=== PATIENT | female | born 1975 | race African-American/Black ===

== ENCOUNTER 2017-01-10 19:55 | Inpatient (IN) | payer OTHER ==
[2017-01-10] MEDS ORDERED: DINOPROSTONE 10 MG VAGINAL SUPPOSITORY VG ONE (21:30)
[2017-01-10] MEDS: DEXTROSE 5%-LACTATED RINGERS 1,000 ML IV SCH (21:40)
[2017-01-10 21:51] LABS: BASOPHIL 0.2 % (0-2.0); EOSINOPHIL 0.4 % (0-4.5); MCHC 32.1 g/dl (32.0-36.0); MEAN CELL VOLUME 90.4 fl (80-96); MEAN PLT VOLUME 10.2 fl (7.5-11.1); NEUTROPHILS 67.3 % (42.8-82.8); PLATELET COUNT 165 K/MM3 (134-434); RDW 16.5 % (11.6-15.6); WHITE BLOOD COUNT 5.7 K/mm3 (4.0-10.0)
[2017-01-10 22:18] LABS: INR 0.96 (0.82-1.09); PROTHROMBIN TIME (PATIENT) 10.9 SEC (9.98-11.88)
[2017-01-10 22:21] LABS: ACTIVATED PTT 28.1 SECONDS (26.9-34.4)
[2017-01-10 22:22] LABS: ANION GAP 8 (8-16); CALCIUM 8.5 mg/dL (8.5-10.1); CO2 27 mmol/L (21-32); CREATININE 0.5 mg/dL (0.55-1.02); GLUCOSE,RANDOM 77 mg/dL (74-106)
[2017-01-10 22:32] VITALS: BMI 33.3
[2017-01-11] MEDS: DEXTROSE 5%-LACTATED RINGERS 1,000 ML IV SCH ×3 (00:40→18:00)
--- NOTE | 2017-01-11 07:20 | HP ---
Past Medical History - Admission History Source: Patient - Past Medical History ...: 3 ...Para: 2 ...Term: 2 ...: 0 ...Spon : 0 ...Induced : 0 ...Multiple Gestation: 0 ...LMP: 03/31/16 ... Weeks Gestation by Dates: 40.5 ...EDC by Dates: 01/05/17 ...EDC by Sono: 01/05/17 - Past Surgical History Past Surgical History: Yes: None Hx Myomectomy: No Hx Transabdominal Cerclage: No - Smoking History Smoking history: Never smoked Have you smoked in the past 12 months: No Aproximately how many cigarettes per day: 0 - Alcohol/Substance Use Hx Alcohol Use: No Home Medications - Allergies Allergies/Adverse Reactions: Allergies Allergy/AdvReac Type Severity Reaction Status Date / Time Penicillins Allergy "can't Verified 01/10/17 20:54 move" - Home Medications Home Medications: Ambulatory Orders Vitamins (Sjr) - 1 tab PO DAILY 01/10/17 Physical Exam - Maternity Vital Signs: Vital Signs Temperature 98.1 F 01/11/17 05:00 Pulse Rate 81 01/11/17 05:00 Respiratory Rate 20 01/11/17 05:00 Blood Pressure 121/76 01/11/17 05:00 O2 Sat by Pulse Oximetry (%) Constitutional: Yes: Well Nourished, No Distress Lungs: Clear to auscultation Breast(s): Yes: WNL - Abdominal Exam/OB Number of Fetuses: Single Presentation: Vertex Category: I Decelerations: None - Vaginal Exam/OB Amniotic Membrane Status: Intact Presentation: Vertex/Position - Labs Lab Results: CBC, BMP 01/10/17 21:20 01/10/17 21:20 Problem List - Problems (1) Elective induction of labor planned Code(s): DOT8348 - Assessment/Plan IUP at week Plan cervidil
[2017-01-11] MEDS ORDERED: DINOPROSTONE 10 MG VAGINAL SUPPOSITORY VG ONE (10:20)
[2017-01-11] MEDS ORDERED: PROMETHAZINE HCL 25 MG/1 ML VIAL IVPUSH ONE (10:32)
[2017-01-11] MEDS ORDERED: BUTORPHANOL TARTRATE 1 MG/ML VIAL IVPB ONE (10:32)
--- NOTE | 2017-01-11 10:32 | PN ---
Ante-Partal Exam - Subjective Subjective: Pt feeling some cramping overnight. NO LOF/VB. +FM Vital Signs: Vital Signs Temperature 98.3 F 01/11/17 10:00 Pulse Rate 84 01/11/17 10:00 Respiratory Rate 18 01/11/17 10:00 Blood Pressure 118/66 01/11/17 10:00 O2 Sat by Pulse Oximetry (%) Bleeding: No Headache: No Visual changes: No Right upper quadrant pain: No - Contractions Contractions: Yes Regularity: Irregular Intensity: Mild/Mod Monitor Mode: External - Exam during Labor Heart Rate: 1 Variability: Moderate Category: I Monitor Accelerations: Present (occasional) Monitor Decelerations: None Exam: Vaginal Dilatation (cm): FT Effacement (%): 0 Amniotic Membrane Status: Intact Presentation: Vertex Station: -3 - Assessment/Plan Assessment/Plan: 41 y/o with SIUP at 40.6 weeks, IOL - FHTS cat 1 - IOL, s/p cervidil overnight, placed 2nd cervidil this a.m. at 1020 - for recheck/re evaluate this evening - GBS positive, to start ampicillin once ROM or active labor - analgesia/epidural prn
--- NOTE | 2017-01-11 19:25 | PN ---
Ante-Partal Exam - Subjective Subjective: Pt feeling more cramps/contractions. Vital Signs: Vital Signs Temperature 98.1 F 01/11/17 18:00 Pulse Rate 76 01/11/17 18:00 Respiratory Rate 20 01/11/17 18:00 Blood Pressure 116/62 01/11/17 18:00 O2 Sat by Pulse Oximetry (%) Bleeding: No Headache: No Visual changes: No Right upper quadrant pain: No - Contractions Contractions: Yes Regularity: Irregular Intensity: Mild/Mod Monitor Mode: External - Exam during Labor Heart Rate: 150 Variability: Moderate Category: I Monitor Decelerations: None Exam: Vaginal Dilatation (cm): 0 Effacement (%): 0 Amniotic Membrane Status: Intact Presentation: Vertex Station: -3 - Assessment/Plan Assessment/Plan: Pt s/p cervidil X 2. Discussed options with patient including 3rd cervidil, cytotec and pitocin. Discussed R/B/A to all options, will try pitocin. If able to open even 1cm will also place simmons balloon catheter if needed. GBS positive, - to start ampicillin if becomes active or ROM
[2017-01-11] MEDS ORDERED: OXYTOCIN 15 UNITS/ LR 250 ML 15 UNIT/250 ML INFUS.BAG IV SCH (19:30)
[2017-01-12] MEDS: DEXTROSE 5%-LACTATED RINGERS 1,000 ML IV SCH (01:30)
[2017-01-12] MEDS ORDERED: ELECTROLYTE-148 SOLN 1,000 ML IV ONE ×2 (10:00→15:15)
[2017-01-12] MEDS ORDERED: ACETAMINOPHEN 325 MG TABLET (FP) PO PRN (12:19)
[2017-01-12] MEDS ORDERED: METHYLERGONOVINE MALEATE 0.2 MG/1 ML AMP IM PRN (12:19)
[2017-01-12] MEDS ORDERED: IBUPROFEN 600 MG TABLET (FP) PO PRN (12:19)
--- NOTE | 2017-01-12 12:25 | PN ---
Ante-Partal Exam - Subjective Subjective: Pt feeling more contractions overnight, no LOF/VB. Vital Signs: Vital Signs Temperature 98.2 F 01/12/17 10:00 Pulse Rate 79 01/12/17 10:00 Respiratory Rate 20 01/12/17 10:00 Blood Pressure 132/75 01/12/17 10:00 O2 Sat by Pulse Oximetry (%) Bleeding: No Headache: No Visual changes: No Right upper quadrant pain: No Pain (scale 1-10): 3 - Contractions Contractions: Yes Regularity: Irregular Intensity: Mild - Exam during Labor Variability: Moderate Category: I Monitor Accelerations: Present Monitor Decelerations: None Exam: Vaginal Dilatation (cm): 0 Effacement (%): 0 Amniotic Membrane Status: Intact Presentation: Vertex Station: -3 - Intrapartum Hemorrhage Risk Medium Risk Factors: None High Risk Factors: None Risk Score: 0 Risk Level: Low Risk - Assessment/Plan Assessment/Plan: Discussed with patient options she desires delivery will proceed with c section NPO for now, troy Bill[place] prior to delivery anesthesia and nursing aware
[2017-01-12] MEDS ORDERED: OXYTOCIN 20 UNITS in 0.9% NS 20 UNIT/1,000 ML INFUS.BAG IV SCH (12:30)
[2017-01-12] MEDS ORDERED: ONDANSETRON 4 MG/2 ML VIAL IVPUSH PRN (12:53)
--- NOTE | 2017-01-12 14:15 | OP ---
Operative Note - Note: Pre-Operative Diagnosis: SIUP at 41 weeks, failed IOL Operation: Primary low transverse delivery Findings: normal b/l tubes and ovaries Post-Operative Diagnosis: Same as Pre-op Surgeon: Lanette Rubio College Specialist: Shila Saha Anesthesiologist/CAFETERIA ASSISTANT: Frankie Groves Anesthesia: Spinal Specimens Removed: placenta, cord blood Estimated Blood Loss (mls): 500 Operative Report Dictated: Yes
[2017-01-12] MEDS ORDERED: OXYTOCIN 20 UNITS in 0.9% NS 20 UNIT/1,000 ML INFUS.BAG IV ONE (14:55)
[2017-01-12] MEDS: IBUPROFEN 800 MG/8 ML IJ IVPB PRN (17:58)
[2017-01-12] MEDS: FERROUS SO4 325 MG TABLET (FP) PO SCH (21:21)
[2017-01-13] MEDS: DEXTROSE 5%-LACTATED RINGERS 1,000 ML IV SCH ×2 (01:30→02:56)
[2017-01-13] MEDS: IBUPROFEN 800 MG/8 ML IJ IVPB PRN (04:00)
--- NOTE | 2017-01-13 08:22 | PN ---
Progress Note (short form) - Note Progress Note: POD #1 - s/p under spinal anesthesia with duramorph. VSS. Pt. doing well, resting comfortably in bed. No complaints. Good pain control. No apparent anesthetic complications noted. Continue current care.
[2017-01-13 09:11] LABS: BASOPHIL 0.3 % (0-2.0); EOSINOPHIL 0.5 % (0-4.5); MCH 29.2 pg (25.7-33.7); MCHC 32.7 g/dl (32.0-36.0); MEAN CELL VOLUME 89.3 fl (80-96); MEAN PLT VOLUME 10.3 fl (7.5-11.1); PLATELET COUNT 133 K/MM3 (134-434); RDW 16.6 % (11.6-15.6); WHITE BLOOD COUNT 10.2 K/mm3 (4.0-10.0)
[2017-01-13] MEDS: FERROUS SO4 325 MG TABLET (FP) PO SCH ×2 (09:33→22:20)
[2017-01-13] MEDS: PRENATAL VITAMINS W/ FOLIC ACID TABLET (FP) PO SCH (09:34)
[2017-01-13] MEDS: ENOXAPARIN NA (PORCINE) 40 MG/0.4 ML DISP.SYRIN SQ SCH (09:34)
--- NOTE | 2017-01-13 09:47 | PN ---
Progress Note (SOAP) - Subjective Chief Complaint: Pt doing well sitting in chair - Current Medications Current Medications: Active Medications Acetaminophen (Tylenol -) 650 mg PO Q4H PRN PRN Reason: FEVER OR PAIN Bisacodyl (Dulcolax Suppository -) 10 mg RC PRN PRN PRN Reason: CONSTIPATION Diphenhydramine HCl (Benadryl Injection -) 25 mg IVPUSH Q4H PRN PRN Reason: Pruritis Enoxaparin Sodium (Lovenox -) 40 mg SQ DAILY [facility] Last Admin: 01/13/17 09:34 Dose: 40 mg Ferrous Sulfate (Feosol -) 325 mg PO BID [facility] Last Admin: 01/13/17 09:33 Dose: 325 mg Dextrose/Lactated Ringer's (D5-Lr -) 1,000 mls @ 125 mls/hr IV ASDIR [facility] Last Admin: 01/13/17 02:56 Dose: Not Given Ibuprofen (Caldolor Injection -) 800 mg IVPB Q8H PRN PRN Reason: PAIN OR FEVER Last Admin: 01/13/17 04:00 Dose: 800 mg Ibuprofen (Motrin -) 600 mg PO Q4H PRN PRN Reason: PAIN Methylergonovine Maleate (Methergine Injection -) 0.2 mg IM Q4H PRN PRN Reason: Excessive Bleeding (L&D) Ondansetron HCl (Zofran Injection) 4 mg IVPUSH Q4H PRN PRN Reason: NAUSEA Oxycodone HCl (Roxicodone -) 5 mg PO Q4H PRN PRN Reason: PAIN LEVEL 1-5 Oxycodone HCl (Roxicodone -) 10 mg PO Q4H PRN PRN Reason: PAIN LEVEL 6-10 Multivit/Folic Acid/Iron ( Vitamins (Sjr) -) 1 tab PO DAILY [facility] Last Admin: 01/13/17 09:34 Dose: 1 tab Simethicone (Mylicon -) 80 mg PO Q4H PRN PRN Reason: GAS - Objective Vital Signs: Vital Signs Temperature 98.6 F 01/13/17 05:08 Pulse Rate 72 01/13/17 05:08 Respiratory Rate 17 01/13/17 05:08 Blood Pressure 106/53 01/13/17 05:08 O2 Sat by Pulse Oximetry (%) 100 01/12/17 14:20 Constitutional: Yes: Well Nourished, No Distress Gastrointestinal: Yes: Soft, Abdomen, Obese ....Post : Yes: Uterus firm, Uterus non-tender Breast(s): Yes: WNL Musculoskeletal: Yes: WNL Extremities: Yes: WNL Edema: Yes Edema: LLE: Trace, RLE: Trace Wound/Incision: Yes: Clean/Dry, Dressing Dry and Intact Psychiatric: Yes: WNL, Alert, Oriented Labs Lab Results: CBC, BMP 01/13/17 08:55 01/10/17 21:20 Problem List - Problems (1) Elective induction of labor planned Code(s): LTF6508 - Assessment/Plan POd 1 SP CS due to failed induction Plan DC dressing oob percocet
[2017-01-13] MEDS: ACETAMINOPHEN 325 MG TABLET (FP) PO PRN ×2 (10:10→16:43)
[2017-01-13] MEDS: oxyCODONE HCL 5 MG TABLET PO PRN ×3 (10:11→23:24)
[2017-01-13] MEDS: SIMETHICONE 80 MG TAB.CHEW (FP) PO PRN ×3 (10:12→23:24)
--- NOTE | 2017-01-13 16:53 | SURG ---
Surgery Corporate Operations Compliance Manager Note Corporate Operations Compliance Manager: Shila Saha PA-C Date of Service: 01/12/17 Diagnosis: SIUP at 41 weeks, failed IOL Procedure: Primary low transverse delivery I was present for the entirety of the operative procedure. For further detail, please refer to operative report. Visit type - Case Type Case Type: Scheduled Admission - Emergency Emergency Visit: Yes ED Registration Date: 01/10/17 Care time: The patient presented to the Emergency Department on the above date and was hospitalized for further evaluation of their emergent condition. - New patient This patient is new to me today: Yes Date on this admission: 01/12/17
[2017-01-13] MEDS: BISACODYL 10 MG SUPP.RECT RC PRN (16:58)
[2017-01-13] MEDS: IBUPROFEN 600 MG TABLET (FP) PO PRN (23:24)
--- NOTE | 2017-01-14 07:52 | PN ---
Post Progress Note - Subjective Subjective: PT seen/evaluated and doing well. Pain controlled, tolerating diet. Ambulating and voiding. Lochia stable and decreasing. Denies CP/SOB/F/C/RUDOLPH. Type of Delivery: Primary C/S Vital Signs: Vital Signs Temperature 98.3 F 01/13/17 21:21 Pulse Rate 80 01/13/17 21:21 Respiratory Rate 20 01/13/17 21:21 Blood Pressure 114/70 01/13/17 21:21 O2 Sat by Pulse Oximetry (%) 100 01/12/17 14:20 Uterus: Yes: Fundus Firm Incision: Yes: Sutures intact Abdomen/GI: Yes: Abdomen soft, Tolerating PO. No: Tender Lochia: Yes: Rubra Lochia, amount: Small Extremities: Yes: Calves non-tender. No: Calf tenderness, Edema Perineum: Yes: Intact Activity: Ambulating - Labs Labs: CBC WBC 10.2 K/mm3 (4.0-10.0) H D 01/13/17 08:55 RBC 3.17 M/mm3 (3.60-5.2) L 01/13/17 08:55 Hgb 9.3 GM/dL (10.7-15.3) L 01/13/17 08:55 Hct 28.3 % (32.4-45.2) L 01/13/17 08:55 MCV 89.3 fl (80-96) 01/13/17 08:55 MCH 29.2 pg (25.7-33.7) 01/13/17 08:55 MCHC 32.7 g/dl (32.0-36.0) 01/13/17 08:55 RDW 16.6 % (11.6-15.6) H 01/13/17 08:55 Plt Count 133 K/MM3 (134-434) L 01/13/17 08:55 MPV 10.3 fl (7.5-11.1) 01/13/17 08:55 Neutrophils % 79.0 % (42.8-82.8) 01/13/17 08:55 Lymphocytes % 11.3 % (8-40) D 01/13/17 08:55 Monocytes % 8.9 % (3.8-10.2) 01/13/17 08:55 Eosinophils % 0.5 % (0-4.5) 01/13/17 08:55 Basophils % 0.3 % (0-2.0) 01/13/17 08:55 Problem List - Problems (1) delivery delivered Code(s): O82 - ENCOUNTER FOR DELIVERY WITHOUT INDICATION (2) Elderly multigravida Code(s): O09.529 - SUPERVISION OF ELDERLY MULTIGRAVIDA, UNSPECIFIED TRIMESTER Assessment/Plan 41 y/o POD#2 s/p primary delivery for failed IOL - AFVSS - Hgb 9.3 post op, pt stable - regular diet, PO pain meds - encourage ambulation - Lovenox for VTE PPx
[2017-01-14] MEDS: FERROUS SO4 325 MG TABLET (FP) PO SCH ×2 (10:02→21:50)
[2017-01-14] MEDS: PRENATAL VITAMINS W/ FOLIC ACID TABLET (FP) PO SCH (10:02)
[2017-01-14] MEDS: ENOXAPARIN NA (PORCINE) 40 MG/0.4 ML DISP.SYRIN SQ SCH (10:03)
[2017-01-14] MEDS: IBUPROFEN 600 MG TABLET (FP) PO PRN (10:10)
[2017-01-14] MEDS: oxyCODONE HCL 5 MG TABLET PO PRN ×2 (10:11→20:16)
[2017-01-14] MEDS: SIMETHICONE 80 MG TAB.CHEW (FP) PO PRN (10:13)
[2017-01-14] MEDS: ACETAMINOPHEN 325 MG TABLET (FP) PO PRN (20:16)
[2017-01-15 06:25] LABS: BASOPHIL 0.7 % (0-2.0); MCH 29.1 pg (25.7-33.7); MCHC 32.6 g/dl (32.0-36.0); MEAN PLT VOLUME 9.9 fl (7.5-11.1); PLATELET COUNT 168 K/MM3 (134-434); RDW 16.6 % (11.6-15.6); WHITE BLOOD COUNT 8.1 K/mm3 (4.0-10.0)
[2017-01-15] MEDS: ACETAMINOPHEN 325 MG TABLET (FP) PO PRN ×3 (06:30→21:11)
[2017-01-15] MEDS: oxyCODONE HCL 5 MG TABLET PO PRN (06:31)
--- NOTE | 2017-01-15 06:41 | PN ---
Post Progress Note - Subjective Subjective: Pt seen/evaluated. Overall doing well. Pain controlled, tolerating diet. Had fever of 102.0 this a.m. and mild tachycardia, otherwise VSS. Denies CP/SOB/F/C /RUDOLPH. Denies LE pain/swelling. Type of Delivery: Primary C/S Vital Signs: Vital Signs Temperature 98.2 F 01/14/17 22:00 Pulse Rate 98 H 01/14/17 22:00 Respiratory Rate 18 01/14/17 22:00 Blood Pressure 117/74 01/14/17 22:00 O2 Sat by Pulse Oximetry (%) 100 01/14/17 21:00 Breast Exam: Yes: Soft Uterus: Yes: Fundus Firm, Non-tender Incision: Yes: Sutures intact Abdomen/GI: Yes: Abdomen soft, Passing flatus, Tolerating PO. No: Tender Lochia: Yes: Rubra Lochia, amount: Small Extremities: Yes: Calves non-tender. No: Edema Perineum: Yes: Intact Activity: Ambulating - Labs Labs: CBC WBC 10.2 K/mm3 (4.0-10.0) H D 01/13/17 08:55 RBC 3.17 M/mm3 (3.60-5.2) L 01/13/17 08:55 Hgb 9.3 GM/dL (10.7-15.3) L 01/13/17 08:55 Hct 28.3 % (32.4-45.2) L 01/13/17 08:55 MCV 89.3 fl (80-96) 01/13/17 08:55 MCH 29.2 pg (25.7-33.7) 01/13/17 08:55 MCHC 32.7 g/dl (32.0-36.0) 01/13/17 08:55 RDW 16.6 % (11.6-15.6) H 01/13/17 08:55 Plt Count 133 K/MM3 (134-434) L 01/13/17 08:55 MPV 10.3 fl (7.5-11.1) 01/13/17 08:55 Neutrophils % 79.0 % (42.8-82.8) 01/13/17 08:55 Lymphocytes % 11.3 % (8-40) D 01/13/17 08:55 Monocytes % 8.9 % (3.8-10.2) 01/13/17 08:55 Eosinophils % 0.5 % (0-4.5) 01/13/17 08:55 Basophils % 0.3 % (0-2.0) 01/13/17 08:55 Problem List - Problems (1) delivery delivered Code(s): O82 - ENCOUNTER FOR DELIVERY WITHOUT INDICATION (2) Elderly multigravida Code(s): O09.529 - SUPERVISION OF ELDERLY MULTIGRAVIDA, UNSPECIFIED TRIMESTER Assessment/Plan 41 y/o POD#3 s/p primary delivery for failed IOL - Febrile to 102 this a.m. - isolated temperature, will give Tylenol now, CBC/ UCx ordered. CXR completed which was negative. If remains elevated on repeat check may consider antibiotics. - Hgb 9.3 on POD#1, CBC pending this a.m. - regular diet, PO pain meds - encourage ambulation - Lovenox for VTE PPx
--- NOTE | 2017-01-15 07:36 | PN ---
Progress Note (short form) - Note Progress Note: Attempt at nasal flu swab this a.m. - pt refused. Problem List - Problems (1) delivery delivered Code(s): O82 - ENCOUNTER FOR DELIVERY WITHOUT INDICATION (2) Elderly multigravida Code(s): O09.529 - SUPERVISION OF ELDERLY MULTIGRAVIDA, UNSPECIFIED TRIMESTER
[2017-01-15] MEDS: PRENATAL VITAMINS W/ FOLIC ACID TABLET (FP) PO SCH (09:39)
[2017-01-15] MEDS: ENOXAPARIN NA (PORCINE) 40 MG/0.4 ML DISP.SYRIN SQ SCH (09:39)
[2017-01-15] MEDS: FERROUS SO4 325 MG TABLET (FP) PO SCH ×2 (09:39→21:09)
[2017-01-15] MEDS: IBUPROFEN 600 MG TABLET (FP) PO PRN (13:26)
[2017-01-15] MEDS: SIMETHICONE 80 MG TAB.CHEW (FP) PO PRN (13:29)
[2017-01-15] MEDS: BISACODYL 10 MG SUPP.RECT RC PRN (21:10)
[2017-01-16] MEDS: SIMETHICONE 80 MG TAB.CHEW (FP) PO PRN ×2 (06:00→20:30)
[2017-01-16] MEDS: IBUPROFEN 600 MG TABLET (FP) PO PRN ×2 (06:00→20:31)
[2017-01-16] MEDS: ACETAMINOPHEN 325 MG TABLET (FP) PO PRN ×2 (06:01→20:30)
--- NOTE | 2017-01-16 09:22 | PN ---
Progress Note (SOAP) - Subjective Chief Complaint: Pt with fever & low grade temp yesterday no fever or pain today pt found sitting in chair - Current Medications Current Medications: Active Medications Acetaminophen (Tylenol -) 650 mg PO Q4H PRN PRN Reason: FEVER OR PAIN Last Admin: 01/16/17 06:01 Dose: 650 mg Bisacodyl (Dulcolax Suppository -) 10 mg RC PRN PRN PRN Reason: CONSTIPATION Last Admin: 01/15/17 21:10 Dose: 10 mg Diphenhydramine HCl (Benadryl Injection -) 25 mg IVPUSH Q4H PRN PRN Reason: Pruritis Enoxaparin Sodium (Lovenox -) 40 mg SQ DAILY [facility] Last Admin: 01/15/17 09:39 Dose: 40 mg Ferrous Sulfate (Feosol -) 325 mg PO BID [facility] Last Admin: 01/15/17 21:09 Dose: 325 mg Dextrose/Lactated Ringer's (D5-Lr -) 1,000 mls @ 125 mls/hr IV ASDIR [facility] Last Admin: 01/13/17 02:56 Dose: Not Given Ibuprofen (Caldolor Injection -) 800 mg IVPB Q8H PRN PRN Reason: PAIN OR FEVER Last Admin: 01/13/17 04:00 Dose: 800 mg Ibuprofen (Motrin -) 600 mg PO Q4H PRN PRN Reason: PAIN Last Admin: 01/16/17 06:00 Dose: 600 mg Methylergonovine Maleate (Methergine Injection -) 0.2 mg IM Q4H PRN PRN Reason: Excessive Bleeding (L&D) Ondansetron HCl (Zofran Injection) 4 mg IVPUSH Q4H PRN PRN Reason: NAUSEA Multivit/Folic Acid/Iron ( Vitamins (Sjr) -) 1 tab PO DAILY [facility] Last Admin: 01/15/17 09:39 Dose: 1 tab Simethicone (Mylicon -) 80 mg PO Q4H PRN PRN Reason: GAS Last Admin: 01/16/17 06:00 Dose: 80 mg - Objective Vital Signs: Vital Signs Temperature 98.0 F 01/16/17 09:09 Pulse Rate 71 01/16/17 09:09 Respiratory Rate 17 01/16/17 09:09 Blood Pressure 131/76 01/16/17 09:09 O2 Sat by Pulse Oximetry (%) 100 01/14/17 21:00 Constitutional: Yes: Well Nourished, No Distress Gastrointestinal: Yes: WNL, Soft ....Post : Yes: Uterus firm, Uterus non-tender Breast(s): Yes: WNL Musculoskeletal: Yes: WNL Edema: No Wound/Incision: Yes: Clean/Dry, Well Approximated Labs Lab Results: CBC, BMP 01/15/17 06:05 01/10/17 21:20 Problem List - Problems (1) Elective induction of labor planned Code(s): [id number] - Assessment/Plan POd 4 SP CS due to failed induction Low grade temp Plan observe 24 hours DC home if afebrile tomorrow oob percocet
[2017-01-16] MEDS: PRENATAL VITAMINS W/ FOLIC ACID TABLET (FP) PO SCH (10:34)
[2017-01-16] MEDS: FERROUS SO4 325 MG TABLET (FP) PO SCH ×2 (10:34→22:06)
[2017-01-16] MEDS: ENOXAPARIN NA (PORCINE) 40 MG/0.4 ML DISP.SYRIN SQ SCH (10:34)
[2017-01-17] MEDS: SIMETHICONE 80 MG TAB.CHEW (FP) PO PRN (08:59)
[2017-01-17] MEDS: ACETAMINOPHEN 325 MG TABLET (FP) PO PRN (08:59)
[2017-01-17] MEDS: IBUPROFEN 600 MG TABLET (FP) PO PRN (09:00)
[2017-01-17 10:02] VITALS: BP 136/86; PULSE 76; TEMP 97.8
[2017-01-17] MEDS: FERROUS SO4 325 MG TABLET (FP) PO SCH (10:22)
[2017-01-17] MEDS: PRENATAL VITAMINS W/ FOLIC ACID TABLET (FP) PO SCH (10:22)
[2017-01-17] MEDS: ENOXAPARIN NA (PORCINE) 40 MG/0.4 ML DISP.SYRIN SQ SCH (10:22)
--- NOTE | 2017-01-17 13:03 | DS ---
Physical Exam-PROFESSOR OF ARCHAEOLOGY Vital Signs: Vital Signs Temperature 97.8 F 01/17/17 09:57 Pulse Rate 76 01/17/17 09:57 Respiratory Rate 18 01/17/17 09:57 Blood Pressure 136/86 01/17/17 09:57 O2 Sat by Pulse Oximetry (%) 100 01/14/17 21:00 Constitutional: Yes: Well Nourished, No Distress Respiratory: Yes: WNL Gastrointestinal: Yes: WNL, Normal Bowel Sounds, Soft ....Post : Yes: Uterus firm, Uterus non-tender Breast(s): Yes: WNL Musculoskeletal: Yes: WNL Extremities: Yes: WNL Edema: No Wound/Incision: Yes: Clean/Dry, Well Approximated Labs: CBC, BMP 01/15/17 06:05 01/10/17 21:20 Delivery - Delivery Type of Anesthesia: Spinal Episiotomy/Laceration: None EBL (cc): 500 Delivery, Single - Stages of Labor Date of Delivery: 01/12/17 Time of Delivery: 13:00 Time Placenta Delivered: 13:01 - Condition of Infant Aboriginal Community Council Member/Hand Tennis Ball Coverer Present: Yes Name: Garima Gilliam Infant Gender: Female Weight: 6 lb 8 oz Position: OA Total Hours ROM (Hrs/Mins): 0hrs/2mins - 1 Minute Total Score: 9 5 Minutes Total Score: 9 - Feeding Plan Initial Plan: Elected not to breastfeed exclusively throughout hospitalization Discharge Summary Reason For Visit: LABOR INDUCTION Current Active Problems delivery delivered (Acute) Elderly multigravida (Acute) Elective induction of labor planned (Acute) Procedures: Principal: Section Hospital Course: Unremarkable Condition: Good - Instructions Diet, Activity, Other Instructions: Physical activity Resume your normal everyday activity as tolerated but no heavy lifting or strenous exercise until seen by your surgeon. You may walk unlimited vannesa of and climb stairs - walking is encourage and will help you recover. You may resume driving the car when you feel safe and comfortable behind the wheel. No sexual activity as instructed for 6 weeks. Wound care If there are tapes on the skin leave them in place. They will peel off in the next 7 to 10 days. Do Not Peel them off. You may shower the day after surgery. If there are tapes present on the skin, you may shower over them. Diet There are no dietary restrictions. Eat healthy, high-fiber foods. Drink 6 to 8 glasses of liquid each day. This will assist in keeping your bowels regular. Pain management You may take Tylenol or Ibuprofen (for example, Motrin, Advil etc.) as needed for pain. If you need any stronger pain medication, please take the narcotics as prescribed/sent to your pharmacy. DO NOT drive while taking narcotics. Make an appointment for 1 week in the office for a check of your incision. Call MD for any of the following: Severe pain not relieved by medication Fever of 101 or higher Excessive bleeding or drainage on dressing Inability to urinate Referrals: Lanette Rubio DO [Staff Physician] - 1 Week Disposition: HOME - Home Medications Comprehensive Discharge Medication List: Ambulatory Orders Vitamins (Sjr) - 1 tab PO DAILY 01/10/17 Ibuprofen [Motrin -] 600 mg PO QID PRN #28 tablet 01/15/17 Oxycodone HCl/Acetaminophen [Percocet 5-325 mg Tablet -] 1 tab PO Q4H #30 tablet MDD 6 01/15/17
--- NOTE | 2017-01-18 10:53 | OP ---
DATE OF OPERATION: 01/12/2017 PREOPERATIVE DIAGNOSIS: Failed induction of labor. Single intrauterine at 41 weeks' gestation. POSTOPERATIVE DIAGNOSIS: Failed induction of labor. Single intrauterine at 41 weeks' gestation. PROCEDURE: Primary low transverse delivery. SURGEON: Lanette Rubio DO [employer]AND SUPERVISOR: NATALIYA Bustamante ESTIMATED BLOOD LOSS: 500 mL COMPLICATIONS: None. SPECIMENS: Included placenta and cord blood collection. COUNT: Sponge, needle, and instrument count correct. DISPOSITION: Stable to PACU. BRIEF HISTORY AND PROCEDURE: Patient is a 41-year-old female who had been admitted for induction of labor on January 10, 2017. After approximately 48 hours of induction attempt, the patient had undergone no cervical dilation or cervical change. The patient was not having any regular painful contractions. The patient was counseled on her options including proceeding with further induction agents versus primary delivery. The patient had elected to undergo a primary delivery at that time. Consents for the procedure on January 12, 2017, were signed. The patient was then taken back to the operating room where she was given spinal anesthesia by Dr. Frankie Groves, and a Fitzgerald catheter was placed under sterile conditions. She was placed in the dorsal supine position and prepped and draped in the usual sterile fashion, and then, a hard timeout was performed. A Pfannenstiel skin incision was created in the skin with a scalpel and carried to the underlying layer of rectus fascia with the scalpel as well as with the Bovie. The fascia was incised on either side of the midline with the Bovie, and the fascial incision was carried in a superolateral direction with the Bovie. The fascia was tented upward and dissected off the underlying layer of rectus muscle with the Bovie. The musculature was identified in the midline and laterally. The peritoneum was entered bluntly, and a bladder blade was inserted to protect the bladder. At this time, a low transverse incision was created on the uterus, which was extended in a superolateral direction bluntly. The infant was then delivered without difficulty and taken over to the warmer to be assessed by the neonatology staff, where the Apgars were 9 and 9. The placenta was then delivered manually and intact, with a 3-vessel cord noted. The uterus was exteriorized from the abdomen, inspected, and cleared of all amniotic membrane and debris with a dry lap sponge. The hysterotomy was reapproximated using 2-layer closure, first using 1 Vicryl in a running locked fashion, second using 0 Biosyn in a running imbricating layer. Bilateral tubes and ovaries were inspected and noted to be normal. The posterior cul-de-sac was suctioned. The uterus was placed back into the abdomen. Bilateral gutters were inspected and cleared of all debris. The hysterotomy was again noted to be hemostatic. The peritoneal layer was reapproximated using 2-0 chromic in a running fashion, and the musculature was reapproximated in interrupted sutures using Biosyn suture. The fascia was reapproximated using 1 Vicryl in a running fashion. Subcutaneous tissue was irrigated and reapproximated in a running fashion. The skin was reapproximated in a subcuticular fashion using 3-0 Vicryl. Steri-Strips were applied. Sponge, needle, and instrument counts reported to be correct. The patient tolerated the procedure well, was recovering in stable condition in the unit at the time of this dictation. LANETTE RUBIO DO /[id number]
--- NOTE | 2017-01-18 15:54 | PATH ---
Surgical Pathology Report Patient Name: MICKEY ZAMORA [facility]. Rec. #: [id number] /Age/Gender: 1975 (Age: 41) / F Account: [id number] Location: [facility] OBS/FIRST COOK Taken: 01/12/2017 Received: 01/13/2017 Reported: 01/18/2017 Physicians: Lanette Rubio M.D. 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 Electronically Signed Herman Valenzuela M.D. Gross Description The specimen is received fresh labeled placenta and is a 522 gram, 20.5 x 15.0 x 2.2 cm. placenta with attached membranes and umbilical cord. The attached membranes are amato, translucent with focal opacities and insert marginally. The umbilical cord measures 58 cm. in length and averages 1 cm. in diameter. The cord inserts eccentrically, 2 cm. to the nearest margin. No true knots or strictures are identified. Cut surface of the umbilical cord reveals 3 vessels. The surface is thomas green, meconium stained with moderate fibrin deposition and appropriate caliber vessels. The maternal surface is red-brown with focal defects. Sectioning reveals red-brown, spongy parenchyma. No lesions are identified. Straddle Bug sections are submitted in three cassettes as follows: 1- membrane rolls and umbilical cord; 2-3- full thickness sections of placenta. 01/16/201701/16/2017
== END 2017-01-17 13:15 | disposition home or self-care (01) | DRG 540 ==
LOC: JLDR 19:55 → J3W 01-12 15:00
PROVIDERS: ADMIT Obstetrics & Gynecology; ATTEND Obstetrics & Gynecology
PROC: 3E0P7VZ Introduction of Hormone into Female Reproductive, Via Natural or Artificial Opening (ICD-10-PCS; 2017-01-11)
PROC: 10D00Z1 Extraction of Products of Conception, Low, Open Approach (ICD-10-PCS; principal; 2017-01-12)
DX: O61.0 Failed medical induction of labor (principal); Z22.330 Carrier of Group B streptococcus; O86.4 Pyrexia of unknown origin following delivery; Z37.0 Single live birth
CPT/HCPCS: 36415; 71010-TC; 80048; 85025; 85610; 85730; 86593; 86850; 86900; 86901; 87086; 88307-TC; 94010

== ENCOUNTER 2017-01-21 12:30 | Inpatient (IN) | payer OTHER ==
--- NOTE | 2017-01-21 13:01 | PDOC ---
Attending Attestation - Resident Resident Name: EstrellaReinaldo - ED Attending Attestation I have performed the following: I have examined & evaluated the patient, The case was reviewed & discussed with the resident, I agree w/resident's findings & plan, Exceptions are as noted - HPI HPI: 41 yo F s/p on 01/12 presents with SOB x1 day. She states that when she lays flat she develops wheezing. No prior lung or heart problems. was uncomplicated until delivery, had to be induced then was performed for failure to progress. She notes that she has had pedal edema that has been worsening since delivery. - Physicial Exam PE: GENERAL: Awake, alert, and fully oriented, in no acute distress HEAD: No signs of trauma EYES: PERRLA, EOMI, sclera anicteric, conjunctiva clear ENT: Auricles normal inspection, hearing grossly normal, nares patent, oropharynx clear without exudates. Moist mucosa NECK: Normal ROM, supple, no lymphadenopathy, JVD, or masses LUNGS: Breath sounds equal, clear to auscultation bilaterally. No wheezes, and no crackles. +Mild tachypnea HEART: Regular rate and rhythm, normal S1 and S2, no murmurs, rubs or gallops ABDOMEN: Soft, nontender, normoactive bowel sounds. No guarding, no rebound. No masses EXTREMITIES: Normal range of motion, 1+ pitting edema to BLE. No clubbing or cyanosis. No cords, erythema, or tenderness NEUROLOGICAL: Cranial nerves II through XII grossly intact. Normal speech, normal gait SKIN: Warm, Dry, normal turgor, no rashes or lesions noted. - Medical Decision Making Pt with SOB x1 day, s/p 9 days ago. Concerning for PE. CTA obtained, found to have pleural effusions B/L. Will d/w timers inspector and PMD.
[2017-01-21 13:14] LABS: BASO % 1.3 % (0-2.0); EOS % 0.3 % (0-4.5); MCH 28.5 pg (25.7-33.7); MCHC 31.7 g/dl (32.0-36.0); MEAN CELL VOLUME 89.9 fl (80-96); NEUT % 69.4 % (42.8-82.8); PLATELET COUNT 283 K/MM3 (134-434); RDW 17.5 % (11.6-15.6); WHITE BLOOD COUNT 5.7 K/mm3 (4.0-10.0)
[2017-01-21 13:31] LABS: INR 1.02 (0.82-1.09); PROTHROMBIN TIME (PATIENT) 11.5 SEC (9.98-11.88)
[2017-01-21 13:39] LABS: ALBUMIN 2.5 g/dl (3.4-5.0); ANION GAP 9 (8-16); CALCIUM 8.7 mg/dL (8.5-10.1); CO2 27 mmol/L (21-32); CREATININE 0.6 mg/dL (0.55-1.02); GLUCOSE,RANDOM 84 mg/dL (74-106); SGOT/AST 82 U/L (15-37); SGPT/ALT 136 U/L (12-78)
[2017-01-21 13:41] LABS: ALK PHOS 152 U/L (45-117); BILIRUBIN,TOTAL 0.6 mg/dL (0.2-1.0); TOT PROT 6.4 g/dl (6.4-8.2)
[2017-01-21] MEDS ORDERED: SODIUM CHLORIDE 1,000 ML IV STA (14:26)
[2017-01-21 14:27] LABS: URINE APPEARANCE CLEAR; URINE BILIRUBIN NEGATIVE (NEGATIVE); URINE BLOOD 2+ (NEGATIVE); URINE COLOR COLORLESS; URINE GLUCOSE (UA) NEGATIVE (NEGATIVE); URINE KETONE NEGATIVE (NEGATIVE); URINE LEUK ESTERASE NEGATIVE (NEGATIVE); URINE NITRITE NEGATIVE (NEGATIVE); URINE PROTEIN NEGATIVE (NEGATIVE); URINE UROBILINOGEN NEGATIVE mg/dL (0.2-1.0)
[2017-01-21 14:31] LABS: URINE WBC 1 /hpf (3-5)
--- NOTE | 2017-01-21 14:54 | PDOC ---
History of Present Illness - General Chief Complaint: Shortness of Breath Stated Complaint: SOB Time Seen by Provider: 01/21/17 13:00 History Source: Patient - History of Present Illness Initial Comments: 01/21/17 16:07 41F who delivered on 01/12 by presents with difficulty breathing since yesterday night with what she describes as noisy breath sound when laying flat. Denies chest pain. Baby was born at 40 weeks, with "fluid in lungs and hypoglycemia". The shortness of breath wasn't sudden but progressive. Patient had pedal edema since the delivery that is getting better 01/21/17 17:03 patient saturating at 94%, 165/86 01/21/17 17:17 Past History - Past Medical History Allergies/Adverse Reactions: Allergies Allergy/AdvReac Type Severity Reaction Status Date / Time Penicillins Allergy "can't Verified 01/21/17 12:34 move" Home Medications: Ambulatory Orders Ibuprofen [Motrin -] 600 mg PO QID PRN #28 tablet 01/15/17 Asthma: No Cancer: No Cardiac Disorders: No CVA: No COPD: No Diabetes: No HTN: No Seizures: No Thyroid Disease: No - Surgical History Abdominal Surgery: Yes (HERNIA REPAIR) - Immunization History Td Vaccination: Yes Immunization Up to Date: Yes - Suicide/Smoking/Psychosocial Hx Smoking Status: No Smoking History: Never smoked Years of Tobacco Use: 0 Have you smoked in the past 12 months: No Number of Cigarettes Smoked Daily: 0 Cigars Per Day: 0 Hx Alcohol Use: No Drug/Substance Use Hx: No Substance Use Type: None Hx Substance Use Treatment: No Review of Systems - Review of Systems Able to Perform ROS?: Yes Is the patient limited Austrian proficient: No Constitutional: No: Symptoms Reported HEENTM: No: Symptoms Reported Respiratory: Yes: See HPI Cardiac (ROS): No: Symptoms Reported ABD/GI: No: Symptoms Reported : No: Symptoms Reported Musculoskeletal: No: Symptoms Reported Integumentary: No: Symptoms Reported Neurological: No: Symptoms reported *Physical Exam - Vital Signs Last Vital Signs Temp Pulse Resp BP Pulse Ox 99.2 F 63 20 162/91 95 01/21/17 12:31 01/21/17 12:31 01/21/17 12:31 01/21/17 12:31 01/21/17 12:31 - Physical Exam General Appearance: Yes: Nourished, Appropriately Dressed. No: Apparent Distress HEENT: positive: EOMI, MELISSA, Normal ENT Inspection Neck: negative: Tender Respiratory/Chest: positive: Lungs Clear, Decreased Breath Sounds. negative: Chest Tender, Respiratory Distress Cardiovascular: positive: Regular Rhythm, Regular Rate, S1, S2 Gastrointestinal/Abdominal: positive: Normal Bowel Sounds, Protuberent, Other (c -section scar healed well, no erythema) Neurologic: positive: Fully Oriented ED Treatment Course - LABORATORY CBC & Chemistry Diagram: 01/21/17 13:08 01/21/17 13:08 - ADDITIONAL ORDERS Additional order review: Laboratory Results 01/21/17 01/21/17 01/21/17 13:43 13:08 13:08 PT with INR 11.50 INR 1.02 Sodium 145 Potassium 4.0 Chloride 109 H Carbon Dioxide 27 Anion Gap 9 BUN 7 D Creatinine 0.6 Creat Clearance w eGFR > 60 Random Glucose 84 Calcium 8.7 Total Bilirubin 0.6 AST 82 H ALT 136 H Alkaline Phosphatase 152 H Total Protein 6.4 Albumin 2.5 L Urine Color Colorless Urine Appearance Clear Urine pH 8.0 D Ur Specific [place] 1.003 Urine Protein Negative Urine Glucose (UA) Negative Urine Ketones Negative Urine Blood 2+ H Urine Nitrite Negative Urine Bilirubin Negative Urine Urobilinogen Negative Urine WBC (Auto) 1 Urine RBC (Auto) None Ur Epithelial Cells Rare 01/21/17 13:08 RBC 3.58 L MCV 89.9 MCHC 31.7 L RDW 17.5 H MPV 9.0 Neutrophils % 69.4 Lymphocytes % 19.3 D Monocytes % 9.7 Eosinophils % 0.3 Basophils % 1.3 - RADIOLOGY Radiology Studies Ordered: Category Date Time Status CHEST PA & LAT [RAD] Stat Radiology 01/21/17 13:23 Completed Medical Decision Making - Medical Decision Making 01/21/17 17:18 41F 1 week post presents with dyspnea Ordered labs, uriah, CTA to r/o PE 01/21/17 17:49 CTA read: 1. No evidence of pulmonary artery embolus through the first order subsegmental pulmonary arteries. 2. Upper lobe predominant interlobular septal thickening may represent interstitial edema. Bilateral layering pleural effusions. Multifocal groundglass airspace opacities may represent alveolar edema (cardiogenic versus noncardiogenic). An infectious or inflammatory pneumonitis as well as alveolar hemorrhage cannot be excluded. 3. Right hilar lymphadenopathy. 4. Mildly dilated main pulmonary artery measuring 31 mm, may be secondary to pulmonary artery hypertension. Please correlate clinically. Calling Dr. Rubio OBGYN 01/21/17 21:[address] Rubio to med/surg for evaluation with consult medical team *DC/Admit/Observation/Transfer Diagnosis at time of Disposition: Pleural effusion - Discharge Dispostion Admit: Yes - Referrals - Patient Instructions - Post Discharge Activity
[2017-01-21] MEDS ORDERED: IBUPROFEN 600 MG TABLET (FP) PO PRN (18:08)
[2017-01-21] MEDS ORDERED: oxyCODONE HCL 5 MG TABLET PO PRN (18:08)
[2017-01-21] MEDS ORDERED: ACETAMINOPHEN 325 MG TABLET (FP) PO PRN ×2 (18:08→22:27)
[2017-01-21] MEDS ORDERED: FUROSEMIDE 40 MG TABLET (FP) PO ONE (18:21)
[2017-01-21] MEDS ORDERED: MAGNESIUM SULFATE 20GM/500ML - 20 GM/500 ML INFUS.BAG IVPB SCH (18:30)
[2017-01-21] MEDS ORDERED: FUROSEMIDE 40 MG TABLET (FP) ONE (18:37)
[2017-01-21 18:56] LABS: URINE LEUK ESTERASE Negative (NEGATIVE)
--- NOTE | 2017-01-21 20:34 | HP ---
Admitting History and Physical - Primary Care Physician PCP: Barney Santana - Admission Chief Complaint: Shortness of Breath History of Present Illness: 41 y/o POD#8 from primary delivery for failed labor induction presented to the ER today with complaints of worsening shortness of breath. Pt denies CP or palpitations. No Headaches/upper abdominal pain. States she had post pedal edema which is now improving. During admission post , patient did have one fever, but this spontaneously resolved. Since pt has been in ED she has had a CTA and CXR to r/o PE. Studies show no evidence of PE but do show pulmonary/alveolar edema, pleural effusions and dilated main pulm artery ? due to possible pulm HTN History Source: Patient, Medical Record Limitations to Obtaining History: No Limitations - Past Medical History Cardiovascular: No: AFIB, HTN Pulmonary: No: Asthma, Pneumonia Gastrointestinal: No: GERD Hepatobiliary: No: Hepatitis A, Hepatitis B Renal/: No: Renal Failure, UTI Reproductive: No: Endometriosis, PID Heme/Onc: No: Anemia Psych: No: Bipolar, Depression Endocrine: No: Diabetes Mellitus, Hyperthyroidism - Past Surgical History Past Surgical History: Yes: None - Smoking History Smoking history: Never smoked Have you smoked in the past 12 months: No Aproximately how many cigarettes per day: 0 - Alcohol/Substance Use Hx Alcohol Use: No - Social History ADL: Independent History of Recent Travel: No Home Medications - Allergies Allergies/Adverse Reactions: Allergies Allergy/AdvReac Type Severity Reaction Status Date / Time Penicillins Allergy "can't Verified 01/21/17 12:34 move" - Home Medications Home Medications: Ambulatory Orders Ibuprofen [Motrin -] 600 mg PO QID PRN #28 tablet 01/15/17 Review of Systems - Review of Systems Constitutional: reports: No Symptoms Eyes: reports: No Symptoms HENT: reports: No Symptoms Neck: reports: No Symptoms Cardiovascular: reports: No Symptoms, Shortness of Breath. denies: Chest Pain, Palpitations Respiratory: reports: SOB Genitourinary: reports: Vaginal Bleeding (normal post bleeding) Integumentary: reports: No Symptoms, Other (incision from healing well) Psychiatric: reports: No Symptoms Physical Examination Vital Signs: Vital Signs Temperature 99.6 F 01/21/17 18:20 Pulse Rate 69 01/21/17 18:20 Respiratory Rate 18 01/21/17 18:20 Blood Pressure 145/86 01/21/17 18:20 O2 Sat by Pulse Oximetry (%) 97 01/21/17 18:20 Constitutional: Yes: Well Nourished, No Distress, Calm Eyes: Yes: Conjunctiva Clear, EOM Intact HENT: Yes: Atraumatic, Normocephalic Neck: Yes: Supple, Trachea Midline Cardiovascular: Yes: WNL, Regular Rate and Rhythm Respiratory: Yes: Regular, SOB. No: Cough Gastrointestinal: Yes: Normal Bowel Sounds, Soft Renal/: Yes: Vaginal Bleeding (normal post vaginal bleeding/lochia) Extremities: Yes: Other (DTRs +2, not brisk, no clonus) Edema: Yes Edema: LLE: Trace, RLE: Trace Peripheral Pulses WNL: Yes Wound/Incision: Yes: Clean/Dry, Well Approximated Neurological: Yes: Alert, Oriented Psychiatric: Yes: Alert, Oriented Labs: CBC, BMP 01/21/17 13:08 01/21/17 13:08 Problem List - Problems (1) Pleural effusion Code(s): J90 - PLEURAL EFFUSION, NOT ELSEWHERE CLASSIFIED (2) delivery delivered Code(s): O82 - ENCOUNTER FOR DELIVERY WITHOUT INDICATION (3) Shortness of breath Code(s): R06.02 - SHORTNESS OF BREATH Assessment/Plan 41 y/o POD#8 s/p primary delivery with c/o SOB - Afebrile - post HTN with SOB/pleural effusion and ? pulm edema, also with elevated liver enzymes- pt with no proteinuria and no other signs of pre eclampsia at this time. Will give labetalol for HTN, repeat liver enzymes. s/ p Lasix 2/2 SOB and pleural effusion. If BP remains elevated and liver enzymes still elevated will make diagnosis of post pre eclampsia. Will continue diuresis for SOB with pleural effusion - medicine also consulted to help manage pulmonary complaints. Will hold off on magnesium sulfate at this time as it can precipitate/worsen pulmonary edema but will have low threshold to start if it appears pre eclampsia is worsening for seizure prophylaxis. Strict I/Os - Lovenox for VTE PPx - PO pain meds, regular diet.
[2017-01-21 21:24] LABS: ALBUMIN 2.7 g/dl (3.4-5.0); ANION GAP 7 (8-16); CALCIUM 8.4 mg/dL (8.5-10.1); CO2 28 mmol/L (21-32); GLUCOSE,RANDOM 83 mg/dL (74-106)
[2017-01-21 21:29] LABS: ALK PHOS 156 U/L (45-117); BILIRUBIN,TOTAL 0.5 mg/dL (0.2-1.0); CREATININE 0.6 mg/dL (0.55-1.02); SGPT/ALT 132 U/L (12-78); TOT PROT 6.7 g/dl (6.4-8.2)
[2017-01-21 21:31] LABS: SGOT/AST 74 U/L (15-37)
[2017-01-21] MEDS ORDERED: LABETALOL HCL 200 MG TABLET (FP) PO SCH ×2 (22:00)
--- NOTE | 2017-01-22 00:26 | PN ---
Teaching Attending Note Name of Resident: Lindsey Stratton ATTENDING PHYSICIAN STATEMENT I saw and evaluated the patient. Chart, data, imaging reviewed. I reviewed the resident's note and discussed the case with the resident. I agree with the resident's findings and plan as documented. SUBJECTIVE: 41 y/o POD#8 from primary delivery for failed labor induction presented with shortness of breath for one day. Patient reports decreased exercise tolerance and swelling of lower extremities b/l. OBJECTIVE: Last Vital Signs Temp Pulse Resp BP Pulse Ox 98.9 F 56 L 24 167/88 99 01/21/17 21:40 01/21/17 21:40 01/21/17 21:40 01/21/17 21:40 01/21/17 21:40 General- NAD, comfortable appearing, nontoxic, aaox3 , speaks in full sentences HEENT- at, nc, moist oral mucosa Neck - no JVD appreciated CV-s1+s2+RRR Chest- CTA b/l Abdomen - soft, nt, BS+ scar s/p C -section healing well Ext- 1+ pedal edema in lower extremities Abnormal Lab Results 01/21/17 01/21/17 01/21/17 13:08 13:08 13:43 RBC 3.58 L Hgb 10.2 L Hct 32.1 L MCHC 31.7 L RDW 17.5 H Chloride 109 H Anion Gap BUN Calcium AST 82 H ALT 136 H Alkaline Phosphatase 152 H Albumin 2.5 L Urine Blood 2+ H 01/21/17 20:50 RBC Hgb Hct MCHC RDW Chloride 110 H Anion Gap 7 L BUN 5 L D Calcium 8.4 L AST 74 H ALT 132 H Alkaline Phosphatase 156 H Albumin 2.[address] of chest C+ - negative for PE, b/l pleural effusions and pulmonary edema, pulmonary vascular congestion EKG - NSR, nonspecific t wave changes, no ST elevations or depressions ASSESSMENT AND PLAN: #Shortness of breath post with pulmonary vascular congestion , pleural effusions, and pulmonary edema on chest CT most 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 Patient received Lasix and labetolol upon admission to hospital. UA wnl so not likely preclampsia. Lasix must be given IV. PE was ruled out. Transmainitis may be related to hepatic injury 2/2 to cardiomyopathy. R/o acute viral hepatitis -Lasix 40mg IV daily -metoprolol 25mg po bid -low dose lisinopril -5 mg po daily -salt restriction -transthoracic echo -accurate I/O -daily weights -troponin -check Mg, phos- supplement prn -Lower ext duplex to r/o DVT (given edema in lower extremities) -Liver U/S -hep IgM -Hep B, C serologies Case was discussed with Dr. Rubio
--- NOTE | 2017-01-22 00:32 | PN ---
Physical Exam: SUBJECTIVE: Patient seen and examined. Pt denies chest pain, sob. Pt c/o decreased exercise tolerance and gwyn LE edema. OBJECTIVE: Vital Signs Period Temp Pulse Resp BP Sys/Barrientos Pulse Ox Last 24 Hr 98.9 F-99.6 F 56-69 18-24 144-167/86-91 95-99 GENERAL: The patient is awake, alert, and fully oriented, in no acute distress. HEAD: Normal with no signs of trauma. ENT: Oropharynx clear without exudates, moist mucous membranes. NECK: Trachea midline, full range of motion, supple. LUNGS: Breath sounds equal, clear to auscultation bilaterally, no wheezes, no crackles, no accessory muscle use. HEART: Regular rate and rhythm, S1, S2 without murmur, rub or gallop. ABDOMEN: Soft, nontender, nondistended, normoactive bowel sounds, no guarding, no masses. Well healing incision to lower abdomen. EXTREMITIES: Warm, well-perfused. 1+ pedal edema to gwyn LE. NEUROLOGICAL: Cranial nerves II through XII grossly intact. Normal speech, gait not observed. PSYCH: Normal mood, normal affect. SKIN: Warm, dry, normal turgor, no rashes or lesions noted Laboratory Results - last 24 hr 01/21/17 01/21/17 01/21/17 13:08 13:08 13:08 WBC 5.7 RBC 3.58 L Hgb 10.2 L Hct 32.1 L MCV 89.9 MCH 28.5 MCHC 31.7 L RDW 17.5 H Plt Count 283 D MPV 9.0 Neutrophils % 69.4 Lymphocytes % 19.3 D Monocytes % 9.7 Eosinophils % 0.3 Basophils % 1.3 PT with INR 11.50 INR 1.02 Sodium 145 Potassium 4.0 Chloride 109 H Carbon Dioxide 27 Anion Gap 9 BUN 7 D Creatinine 0.6 Creat Clearance w eGFR > 60 Random Glucose 84 Calcium 8.7 Total Bilirubin 0.6 AST 82 H ALT 136 H Alkaline Phosphatase 152 H Total Protein 6.4 Albumin 2.5 L Urine Color Urine Appearance Urine pH Ur Specific [place] Urine Protein Urine Glucose (UA) Urine Ketones Urine Blood Urine Nitrite Urine Bilirubin Urine Urobilinogen Ur Leukocyte Esterase Urine WBC (Auto) Urine RBC (Auto) Ur Epithelial Cells 01/21/17 01/21/17 13:43 20:50 WBC RBC Hgb Hct MCV MCH MCHC RDW Plt Count MPV Neutrophils % Lymphocytes % Monocytes % Eosinophils % Basophils % PT with INR INR Sodium 145 Potassium 3.7 Chloride 110 H Carbon Dioxide 28 Anion Gap 7 L BUN 5 L D Creatinine 0.6 Creat Clearance w eGFR > 60 Random Glucose 83 Calcium 8.4 L Total Bilirubin 0.5 AST 74 H ALT 132 H Alkaline Phosphatase 156 H Total Protein 6.7 Albumin 2.7 L Urine Color Colorless Urine Appearance Clear Urine pH 8.0 D Ur Specific [place] 1.003 Urine Protein Negative Urine Glucose (UA) Negative Urine Ketones Negative Urine Blood 2+ H Urine Nitrite Negative Urine Bilirubin Negative Urine Urobilinogen Negative Ur Leukocyte Esterase Negative Urine WBC (Auto) 1 Urine RBC (Auto) None Ur Epithelial Cells Rare Active Medications Generic Name Dose Route Start Last Admin Trade Name Freq PRN Reason Stop Dose Admin Acetaminophen 650 mg 01/21/17 22:27 Tylenol - PO Q4H PRN FEVER OR PAIN Enoxaparin Sodium 40 mg 01/22/17 10:00 Lovenox - SQ DAILY [facility] Furosemide 80 mg 01/22/17 10:00 Lasix Injection - IVPB DAILY [facility] Metoprolol Tartrate 25 mg 01/22/17 10:00 Lopressor - PO BID [facility] Oxycodone HCl 5 mg 01/21/17 18:08 Roxicodone - PO Q4H PRN PAIN LEVEL 1-5 IMAGIN01/21/17 CXR -> There may be some costophrenic angle blunting. Some degenerative changes noted. 01/21/17 CTA -> No evidence of pulmonary artery embolus. Upper lobe predominant interlobular septal thickening which may represent interstitial edema. Gwyn layering pleural effusions. Multifolcal groundglass airspace opacities may represent alveolar edema (cardiogenic vs noncardiogenic). An infectious or inflammatory pneumonitis as well as alveolar hemorrhage cannot be excluded. Right hilar lymphadenopathy. Mildly dilated main pulm artery measuring 31mm, may be 2/2 pulmonary artery htn. IMPRESSION/RECOMMENDATIONS: 41yo F POD 8 s/p , presents with sob x 1 day. # sob post - CTA reveals pulmonary vascular congestion, pleural effusions, and pulmonary edema on CTA - most likely 2/2 post- cardiomyopathy vs PE vs post- pre- eclampsia - PE r/o by CTA - UA wnl, post- pre-eclampsia less likely - Lasix given, continue Lasix 40mg IVpush daily - Labetalol given, switch to Metoprolol 25mg po BID - Duplex US gwyn LE - Echo - I&O's - daily wts - troponin - check Mg and Phos # transaminitis - may be 2/2 hepatic injury related to cardiomyopathy - r/o viral hepatitis - Hep IgM - Hep B and C serologies - Liver US # FEN - Fluids: po - Electrolytes: wnl, continue to monitor - Nutrition: low sodium diet # DVT Prophylaxis - Lovenox Visit type - Emergency Visit Emergency Visit: Yes ED Registration Date: 01/21/17 Care time: The patient presented to the Emergency Department on the above date and was hospitalized for further evaluation of their emergent condition. - New Patient This patient is new to me today: Yes Date on this admission: 01/22/17 - Critical Care Critical Care patient: No
[2017-01-22] MEDS ORDERED: LABETALOL HCL 200 MG TABLET (FP) PO SCH (06:00)
[2017-01-22] MEDS ORDERED: FUROSEMIDE 40 MG TABLET (FP) PO SCH (06:00)
[2017-01-22 08:03] LABS: BASO % 0.5 % (0-2.0); EOS % 0.4 % (0-4.5); MCH 28.9 pg (25.7-33.7); MCHC 32.8 g/dl (32.0-36.0); MEAN CELL VOLUME 88.3 fl (80-96); MEAN PLT VOLUME 9.3 fl (7.5-11.1); NEUT % 65.5 % (42.8-82.8); PLATELET COUNT 296 K/MM3 (134-434); RDW 17.5 % (11.6-15.6); WHITE BLOOD COUNT 5.9 K/mm3 (4.0-10.0)
--- NOTE | 2017-01-22 08:05 | PN ---
Progress Note, Physician Chief Complaint: Pt still with some SOB but feeling much better. Denies coughing/wheezing, still hearing some "crackles" when she breathes but is improved from admission. States LE edema is improved/resolved as well. - Current Medication List Current Medications: Active Medications Acetaminophen (Tylenol -) 650 mg PO Q4H PRN PRN Reason: FEVER OR PAIN Enoxaparin Sodium (Lovenox -) 40 mg SQ DAILY [facility] Furosemide (Lasix Injection -) 40 mg IVPB DAILY [facility] Lisinopril (Prinivil) 5 mg PO DAILY [facility] Metoprolol Tartrate (Lopressor -) 25 mg PO BID JALEN Oxycodone HCl (Roxicodone -) 5 mg PO Q4H PRN PRN Reason: PAIN LEVEL 1-5 - Objective Vital Signs: Vital Signs Temperature 99.9 F H 01/22/17 06:00 Pulse Rate 66 01/22/17 06:00 Respiratory Rate 20 01/22/17 06:00 Blood Pressure 148/84 01/22/17 06:00 O2 Sat by Pulse Oximetry (%) 99 01/21/17 21:40 Constitutional: Yes: Well Nourished, No Distress, Calm Eyes: Yes: Conjunctiva Clear, EOM Intact HENT: Yes: Atraumatic, Normocephalic Neck: Yes: Supple, Trachea Midline Cardiovascular: Yes: Regular Rate and Rhythm Respiratory: Yes: WNL, Regular Gastrointestinal: Yes: Normal Bowel Sounds, Soft Edema: LLE: Trace, RLE: Trace Wound/Incision: Yes: Clean/Dry, Well Approximated Neurological: Yes: Alert, Oriented Psychiatric: Yes: Alert, Oriented Labs: INR, PTT INR 1.02 (0.82-1.09) 01/21/17 13:08 Problem List - Problems (1) Pleural effusion Code(s): J90 - PLEURAL EFFUSION, NOT ELSEWHERE CLASSIFIED (2) delivery delivered Code(s): O82 - ENCOUNTER FOR DELIVERY WITHOUT INDICATION (3) Shortness of breath Code(s): R06.02 - SHORTNESS OF BREATH Assessment/Plan 41 y/o POD#9 s/p primary delivery with c/o SOB, pulm edema and pleural effusion on imaging, concern for possible post cardiomyopathy - Afebrile - post HTN with SOB/pleural effusion, pulm edema, also with elevated liver enzymes- concern for post cardiomyopathy vs. preEclampsia. pt with no proteinuria and still no other signs/sx of pre eclampsia at this time except elevated AST/ALT and pulm edema. Awaiting repeat AST/ALT as well as CMP with mg/ phos this a.m. Pulm edema evaluated by medicine and there is also concern for post cardiomyopathy. s/p Lasix PO yesterday 2/2 SOB and pleural effusion. Will continue daily IV Lasix per medicine recomendatons - appreciate input. Continue metoprolol and Lisinopril for HTN/? cardiomyopathy. Transthoracic Echo/LE dopplers ordered for today. Will continue to hold off on magnesium sulfate at this time as it can precipitate/worsen pulmonary edema but if signs/sx pre eclampsia worsen will start for seizure prophylaxis. Elevated liver enzymes - repeated this a.m., liver ultrasound pending. Pt denies RUQ pain/nausea/vomiting. - Lovenox for VTE PPx, venous artery dopplers ordered - PO pain meds, regular diet (with salt restrictions) - no IV fluids - PO only - continue current care
[2017-01-22 08:20] LABS: ALBUMIN 2.5 g/dl (3.4-5.0); ANION GAP 8 (8-16); BILIRUBIN,TOTAL 0.8 mg/dL (0.2-1.0); CALCIUM 8.4 mg/dL (8.5-10.1); CO2 32 mmol/L (21-32); CREATININE 0.7 mg/dL (0.55-1.02); GLUCOSE,RANDOM 97 mg/dL (74-106); SGOT/AST 51 U/L (15-37); SGPT/ALT 111 U/L (12-78); TOT PROT 6.2 g/dl (6.4-8.2)
[2017-01-22 08:30] LABS: ALK PHOS 132 U/L (45-117)
[2017-01-22] MEDS ORDERED: FUROSEMIDE 40 MG/4 ML INJECTABLE VIAL IVPB SCH (10:00)
[2017-01-22] MEDS ORDERED: LISINOPRIL 5 MG TABLET (FP) PO SCH (10:00)
[2017-01-22] MEDS: FUROSEMIDE 40 MG/4 ML INJECTABLE VIAL IVPB SCH (10:12)
[2017-01-22] MEDS: METOPROLOL TARTRATE 25 MG TABLET (FP) PO SCH ×2 (10:18→21:04)
[2017-01-22] MEDS: ENOXAPARIN NA (PORCINE) 40 MG/0.4 ML DISP.SYRIN SQ SCH (10:20)
[2017-01-22] MEDS ORDERED: POTASSIUM CHLORIDE TABS 20 MEQ TABLET.ER (FP) PO ONE (14:15)
--- NOTE | 2017-01-22 14:53 | PN ---
Progress Note (short form) - Note Progress Note: Subjective: patient feels better , SOB has improved . No fever or chills. NO CP . Objective: Vital Signs: Last Vital Signs Temp Pulse Resp BP Pulse Ox 98 F 66 20 141/78 99 01/22/17 10:00 01/22/17 10:00 01/22/17 10:00 01/22/17 10:00 01/21/17 21:40 Physical Exam: NAD CV: RRR, 2/6 SM at apex , No JVD Lungs: CTAB Abd: soft, NT, ND , uterus is felt in pelvis , well healing CS scar. Ext: trace edema Imaging: CT of the chest image and report reviewed. US report reviewed, Abd US pending Assessment/Plan: 41 y/o lady who is previously helathy, now s/p CS who presented with SOB x 3 days . 1- SOB, pulmonary edema : suspicion for cardiomyopathy. signs of heart failure include pulm edema, elevated LFTS due to congestion, and elevated BNP. unlikely pre-eclampsia. - Cont lasix 40 IV daily. will assess volume status tomorrow, for possible switch to PO lasix - Cxray in am - Increase lisinopril dose to 10. - Tolerated BB , will continue same dose - Echo pending - monitor renal function on ACEI and Lasix - For : metoprolol is probably safe , but limited studies on humans. There is no date on Lisinopril to evaluate safety in . No breast feeding is recommended at this time . 2- HTN: no previous diagnosis . slightly elevated on meds - cont BB - increase lisinopril as above 3- transaminitis : likely due to passive liver congestion for m heart failure slightly improved after diuresis - US pending - cont with diuresis 4- DVT Px Thanks for this consult. will cont to follow Visit type - Emergency Visit Emergency Visit: Yes ED Registration Date: 01/21/17 Care time: The patient presented to the Emergency Department on the above date and was hospitalized for further evaluation of their emergent condition. - New Patient This patient is new to me today: No - Critical Care Critical Care patient: No
[2017-01-22] MEDS ORDERED: LISINOPRIL 5 MG TABLET (FP) PO ONE (15:15)
[2017-01-23] MEDS: METOPROLOL TARTRATE 50 MG TABLET (FP) PO SCH ×2 (06:21→10:00)
--- NOTE | 2017-01-23 08:01 | PN ---
Progress Note, Physician History of Present Illness: Pt seen/evaluated. Had elevated BP overnight. Increased dose of Metoprolol this a.m. and administered dose early this a.m. Pt continues to be asymtpomatic from HTN - denies RUDOLPH/RUQ pain or changes/spots in vision. - Current Medication List Current Medications: Active Medications Acetaminophen (Tylenol -) 650 mg PO Q4H PRN PRN Reason: FEVER OR PAIN Enoxaparin Sodium (Lovenox -) 40 mg SQ DAILY [facility] Last Admin: 01/22/17 10:20 Dose: 40 mg Furosemide (Lasix Injection -) 40 mg IVPB DAILY [facility] Last Admin: 01/22/17 10:12 Dose: 40 mg Lisinopril (Prinivil) 10 mg PO DAILY [facility] Metoprolol Tartrate (Lopressor -) 50 mg PO BID [facility] Last Admin: 01/23/17 06:21 Dose: 50 mg Oxycodone HCl (Roxicodone -) 5 mg PO Q4H PRN PRN Reason: PAIN LEVEL 1-5 - Objective Vital Signs: Vital Signs Temperature 99.1 F 01/23/17 06:00 Pulse Rate 66 01/23/17 06:06 Respiratory Rate 20 01/23/17 06:00 Blood Pressure 178/94 01/23/17 06:06 O2 Sat by Pulse Oximetry (%) 99 01/21/17 21:40 Constitutional: Yes: Well Nourished, No Distress, Calm Eyes: Yes: Conjunctiva Clear, EOM Intact HENT: Yes: Atraumatic, Normocephalic Respiratory: Yes: WNL, Regular Extremities: Yes: WNL Edema: Yes (trace LE edema b/l ) Wound/Incision: Yes: Clean/Dry, Well Approximated Psychiatric: Yes: Alert, Oriented Labs: CBC, BMP 01/22/17 06:00 01/22/17 06:00 INR, PTT INR 1.02 (0.82-1.09) 01/21/17 13:08 Problem List - Problems (1) Pleural effusion Code(s): J90 - PLEURAL EFFUSION, NOT ELSEWHERE CLASSIFIED (2) delivery delivered Code(s): O82 - ENCOUNTER FOR DELIVERY WITHOUT INDICATION (3) Shortness of breath Code(s): R06.02 - SHORTNESS OF BREATH Assessment/Plan 41 y/o POD#10 s/p primary delivery with c/o SOB, pulm edema and pleural effusion on imaging, diagnosed with post cardiomyopathy - Afebrile - post HTN with SOB/pleural effusion, pulm edema, also with elevated liver enzymes and BNP- consistent wth post cardiomyopathy - medicine following. Pt on diruetics and Beta Blockers at this time. Increased dose of Metoprolol this a.m. 2/2 elevated BP. Continue with Lisinopril. Daily weights and strict I/Os. Pt still denies RUDOLPH/RUQ pain or changes in vision. States SOB is improving. LE dopplers negative and abd ultrasound (for elevated liver enzymes) both WNL. Transthoracic Echo ordered. Continue to appreciate medical consult/input. - Lovenox for VTE PPx, venous artery dopplers ordered - PO pain meds, regular diet (with salt restrictions) - PO intake only - continue current care
[2017-01-23] MEDS ORDERED: LISINOPRIL 10 MG TABLET (FP) PO ONE ×2 (08:22→09:30)
[2017-01-23] MEDS ORDERED: LISINOPRIL 10 MG TABLET (FP) PO STA (08:23)
[2017-01-23 09:25] LABS: ALBUMIN 2.7 g/dl (3.4-5.0); ANION GAP 10 (8-16); CALCIUM 8.9 mg/dL (8.5-10.1); CO2 31 mmol/L (21-32); CREATININE 0.6 mg/dL (0.55-1.02); GLUCOSE,RANDOM 103 mg/dL (74-106); MAGNESIUM 2.4 mg/dL (1.8-2.4); SGOT/AST 29 U/L (15-37); SGPT/ALT 86 U/L (12-78)
[2017-01-23 09:30] LABS: ALK PHOS 131 U/L (45-117); BILIRUBIN,TOTAL 0.9 mg/dL (0.2-1.0); CPK 202 IU/L (26-192); PHOSPHOROUS 4.2 mg/dL (2.5-4.9); TOT PROT 6.5 g/dl (6.4-8.2); TROPONIN I 0.02 ng/ml (0.00-0.05)
[2017-01-23] MEDS ORDERED: SODIUM CHLORIDE NASAL SPRAY 44 ML BOTTLE NS PRN (09:41)
[2017-01-23] MEDS: FUROSEMIDE 40 MG/4 ML INJECTABLE VIAL IVPB SCH (10:00)
[2017-01-23] MEDS: ENOXAPARIN NA (PORCINE) 40 MG/0.4 ML DISP.SYRIN SQ SCH (10:00)
[2017-01-23] MEDS ORDERED: LISINOPRIL 10 MG TABLET (FP) PO SCH (10:00)
[2017-01-23 11:06] VITALS: BMI 30.5
--- NOTE | 2017-01-23 11:06 | CON.NEP ---
Consult Consult Specialty:: Nephrology Referred by:: Dr. Rubio Reason for Consultation:: Hypertension - History of Present Illness Chief Complaint: SOB History of Present Illness: This is a 41 year old woman with no significant past medical history that presented s/p Primary with complaints of SOB and found to have Cardiomyopathy and hypertension. Pt denies any past medical problems including hypertension, CAD, CHF. Pt with DENSON and LE swelling on presentation that has improved s/p Lasix. Pt started on Lisinopril and Metoprolol. Feels better now. No CP, Cough, Fever, chills. No N/V/D. No RUDOLPH or blurry vision. - History Source History Provided By: Patient Limitations to Obtaining History: No Limitations - Past Medical History Cardio/Vascular: No: AFIB, HTN Pulmonary: No: Asthma, Pneumonia Gastrointestinal: No: GERD Hepatobiliary: No: Hepatitis A, Hepatitis B Renal/: No: Renal Failure, UTI ...LMP: 04/02/16 ...: No (s/p PCS on [id number]) Psych: No: Bipolar, Depression Endocrine: No: Diabetes Mellitus, Hyperthyroidism - Past Surgical History Past Surgical History: Yes: None - Alcohol/Substance Use Hx Alcohol Use: No - Smoking History Smoking history: Never smoked Have you smoked in the past 12 months: No Aproximately how many cigarettes per day: 0 - Social History ADL: Independent History of Recent Travel: No Home Medications - Allergies Allergies/Adverse Reactions: Allergies Allergy/AdvReac Type Severity Reaction Status Date / Time Penicillins Allergy "can't Verified 01/21/17 12:34 move" - Home Medications Home Medications: Ambulatory Orders Ibuprofen [Motrin -] 600 mg PO QID PRN #28 tablet 01/15/17 Review of Systems - Review of Systems Constitutional: reports: No Symptoms Eyes: reports: No Symptoms HENT: reports: No Symptoms Neck: reports: No Symptoms Cardiovascular: reports: Edema, Shortness of Breath. denies: Chest Pain, Palpitations Respiratory: reports: SOB, SOB on Exertion. denies: Cough, Hemoptysis, Orthopnea, PND, Wheezing Gastrointestinal: reports: No Symptoms Genitourinary: reports: No Symptoms Musculoskeletal: reports: No Symptoms Integumentary: reports: No Symptoms Neurological: reports: No Symptoms Endocrine: reports: No Symptoms Nephrology Consult - Height Height: 5 ft 2 in - Weight Weight: 75.75 kg - BMI Body Mass Index (BMI): 30.5 - Lab Results CBC,BMP: CBC, BMP 01/22/17 06:00 01/23/17 08:20 Anion Gap: Anion Gap Anion Gap 10 (8-16) 01/23/17 08:20 - Imaging Chest X-ray: Report Reviewed Cat Scan: Report Reviewed - Physical Examination Vital Signs: Vital Signs Temperature 98.6 F 01/23/17 08:59 Pulse Rate 57 L 01/23/17 08:59 Respiratory Rate 18 01/23/17 08:59 Blood Pressure 165/95 01/23/17 08:59 O2 Sat by Pulse Oximetry (%) 99 01/21/17 21:40 Constitutional: Yes: No Distress, Calm Eyes: Yes: Conjunctiva Clear HENT: Yes: Atraumatic Neck: Yes: Supple Cardiovascular: Yes: Regular Rate and Rhythm Respiratory: Yes: Regular, CTA Bilaterally. No: Rales, Rhonchi Gastrointestinal: Yes: Normal Bowel Sounds, Soft Edema: Yes Edema: LLE: Trace, RLE: Trace Neurological: Yes: Alert, Oriented, Cran Nerves II-XII Intact Assessment/Plan 41 year old woman with no significant past medical history that presented s/p Primary with complaints of SOB and found to have Cardiomyopathy and hypertension. #Suspected Cardiomyopathy with Hypertension Pt appears clinically improved BP remains above goal ECHO pending Cardiology consulted Continue Lisinopril (increased to 20mg Daily today) Continue metoprolol (monitor HR) Check UPCR Goal BP is < 150/100 and ideally < 140/90 Cardiolgoy may have more aggressive BP goal if there is significant cardiomyopathy avoid NSAIDs Low salt diet Pt should not breast feed on ACEi Trend BP closely Consider checking viral Ab/titers given cardiomyopathy thank you Will follow Taz Bonilla DO
--- NOTE | 2017-01-23 14:55 | CON.CARD ---
Consult Consult Specialty:: Cardiology Referred by:: [employer] Reason for Consultation:: Post- hypertension - History of Present Illness Chief Complaint: Dyspnea, orthopnea, LE edema History of Present Illness: This is a 41 year old woman with no significant past medical history that presented s/p Primary with complaints of SOB and found to have CHF and hypertension. Pt denies any past medical problems including hypertension, CAD, CHF. Pt with DENSON, orthopnea and LE swelling on presentation that has improved with diuresis and afterload reduction, echo showed preserved LV fxn. Pt started on Lisinopril and Metoprolol. Feels better now with resolution of DENSON, orthopnea and LE edema. - History Source History Provided By: Patient Limitations to Obtaining History: No Limitations - Past Medical History Cardio/Vascular: No: AFIB, HTN Pulmonary: No: Asthma, Pneumonia Gastrointestinal: No: GERD Hepatobiliary: No: Hepatitis A, Hepatitis B Renal/: No: Renal Failure, UTI ...LMP: 04/02/16 ...: No (s/p PCS on [id number]) Psych: No: Bipolar, Depression Endocrine: No: Diabetes Mellitus, Hyperthyroidism - Past Surgical History Past Surgical History: Yes: None - Alcohol/Substance Use Hx Alcohol Use: No - Smoking History Smoking history: Never smoked Have you smoked in the past 12 months: No Aproximately how many cigarettes per day: 0 - Social History ADL: Independent History of Recent Travel: No Home Medications - Allergies Allergies/Adverse Reactions: Allergies Allergy/AdvReac Type Severity Reaction Status Date / Time Penicillins Allergy "can't Verified 01/21/17 12:34 move" - Home Medications Home Medications: Ambulatory Orders Ibuprofen [Motrin -] 600 mg PO QID PRN #28 tablet 01/15/17 Review of Systems - Review of Systems Cardiovascular: reports: Edema, Shortness of Breath Respiratory: reports: Orthopnea Vital Signs: Vital Signs Temperature 98.6 F 01/23/17 08:59 Pulse Rate 51 L 01/23/17 12:31 Respiratory Rate 20 01/23/17 12:31 Blood Pressure 178/96 01/23/17 12:31 O2 Sat by Pulse Oximetry (%) 99 01/21/17 21:40 Constitutional: Yes: No Distress, Calm Neck: Yes: Supple Respiratory: Yes: Regular, Diminished Gastrointestinal: Yes: Normal Bowel Sounds, Soft Cardiovascular: Yes: Regular Rate and Rhythm JVD: No Carotid Bruit: No Heart Sounds: Yes: S1, S2 Murmur: Yes: Systolic Murmur, Grade 1 Edema: No - Other Data Labs, Other Data: CBC, BMP 01/22/17 06:00 01/23/17 08:20 INR, PTT INR 1.02 (0.82-1.09) 01/21/17 13:08 Troponin, BNP 01/23/17 08:20 Troponin I 0.02 Troponin, BNP 01/23/17 08:20 Troponin I 0.02 NSR @ [address]-T changes Echo: Report Reviewed Ejection Fraction %: LVEF > or = 40 % Imaging - Results Chest X-ray: Report Reviewed (Improving CHF and effusions) Cat Scan: Report Reviewed (No PE, +congestion and bilateral effusions) Problem List - Problems (1) hypertension Code(s): O16.5 - UNSPECIFIED MATERNAL HYPERTENSION, COMP THE PUERPERIUM (2) Acute diastolic heart failure Code(s): I50.31 - ACUTE DIASTOLIC (CONGESTIVE) HEART FAILURE (3) Pleural effusion Code(s): J90 - PLEURAL EFFUSION, NOT ELSEWHERE CLASSIFIED (4) Shortness of breath Code(s): R06.02 - SHORTNESS OF BREATH (5) delivery delivered Code(s): O82 - ENCOUNTER FOR DELIVERY WITHOUT INDICATION Assessment/Plan 01/23/2017 Echo: Normal LV size and fxn, mod TR, mild MR, NE 1. Resolving acute diastolic failure in context of 2. hypertensive urgency, BP not at goal control 3. Hepatic congestion improving P:1. Diuresis with monitor diuretic response, renal fxn and electrolytes 2. Recommend change Lopressor to carvedilol 6.25 bid and lisinopril 20 qd with uptitration as hemodynamics tolerate 3. Avoid NSAIDs 4. Avoid on NATAN-I and beta blockers 5. LV systolic function is preserved on echo unlike peripartum cardiomyopathy, no clinical evidence of spontaneous coronary artery dissection associated with 5. Thank you for consultative opportunity
--- NOTE | 2017-01-23 15:13 | PN ---
Teaching Attending Note Name of Resident: Kristina Yu ATTENDING PHYSICIAN STATEMENT I saw and evaluated the patient. I reviewed the resident's note and discussed the case with the resident. I agree with the resident's findings and plan as documented. SUBJECTIVE: No fever or chills. has no BA pain. has chest pressure over all chest , feels anxious OBJECTIVE: NAD CV: RRR , No JVD Lungs: CTAB Abd: soft, NT, ND , uterus is felt in pelvis , well healing CS scar. Ext: No edema today Assessment/Plan: 41 y/o lady who is previously helathy, now s/p CS who presented with SOB x 3 days . 1- SOB, pulmonary edema, and pleural effusion : suspicion for cardiomyopathy. - received her IV lasix today ,volume status much improved. will give po lasix tomorrow if volume status cont to improve - increase lisinopril to 20 - metoproll increased to 50 , monitor HR - Echo , with Nl EF and MR, TR, UT - will d/w card - Avoid breat feeding on these meds - recommend strict I&O 2- HTN: Lisnopril and BB as above 3- Transaminitis : likely due to passive liver congestion. Cont to improve - US with no etiology - cont to trend 4- DVT Px will cont to follow
[2017-01-23] MEDS: CARVEDILOL 6.25 MG TABLET (FP) PO SCH (16:47)
--- NOTE | 2017-01-23 18:11 | PN ---
Physical Exam: SUBJECTIVE: Patient seen and examined. sob improving, c/o some chest tightness, but no CP. No fever, chills, abdominal pain. Elevated BP this AM to 178/94 -> given 40mg IVP lasix. OBJECTIVE: Vital Signs Period Temp Pulse Resp BP Sys/Barrientos Pulse Ox Last 24 Hr 98.6 F-99.3 F 49-98 18-20 133-178/87-101 GENERAL: nad, aox3 NECK: supple, no jvd LUNGS: CTAB HEART: rrr, normal S1/S2, no m/r/g ABDOMEN: Soft, ntnd, well-healing CS scar EXTREMITIES: wwp, no edema, 2+ DP NEUROLOGICAL: CN II-XII intact. Normal speech CBC, BMP 01/22/17 06:00 01/23/17 08:20 Hepatic Panel Total Bilirubin 0.9 mg/dL (0.2-1.0) 01/23/17 08:20 AST 29 U/L (15-37) D 01/23/17 08:20 ALT 86 U/L (12-78) H D 01/23/17 08:20 Alkaline Phosphatase 131 U/L (45-117) H 01/23/17 08:20 Albumin 2.7 g/dl (3.4-5.0) L 01/23/17 08:20 Troponin, BNP 01/23/17 08:20 Troponin I 0.02 Active Medications Acetaminophen (Tylenol -) 650 mg PO Q4H PRN PRN Reason: FEVER OR PAIN Carvedilol (Coreg -) 6.25 mg PO BID [facility] Last Admin: 01/23/17 16:47 Dose: Not Given Enoxaparin Sodium (Lovenox -) 40 mg SQ DAILY [facility] Last Admin: 01/23/17 10:00 Dose: 40 mg Furosemide (Lasix -) 40 mg PO DAILY [facility] Lisinopril (Prinivil) 20 mg PO DAILY [facility] Oxycodone HCl (Roxicodone -) 5 mg PO Q4H PRN PRN Reason: PAIN LEVEL 1-5 Sodium Chloride ([place] Nasal [place] -) 2 spray NS TID PRN PRN Reason: NASAL CONGESTION Last Admin: 01/23/17 16:48 Dose: 2 sprays ASSESSMENT/PLAN: 41yo woman, previously healthy, who is s/p CS (01/12) who p/w with several days SOB and pulmonary edema. #SOB, pulmonary edema, and pleural effusion, improving -ECHO today unlikely cardiomyopathy (LV systolic function preserved, mild MR and NE, mod TR, no pericardial effusion) -received 40mg IV lasix today. Plan to give PO 40mg Lasix if cont to improve -lisinopril increased 10 --> 20mg -Lopressor --> Carvedilol 6.25mg BID #HTN: 178/107 today -Increase Lisnopril 10--> 20mg PO daily -Metoprolol switched to carvedilol as above #Transaminitis, improving - Ultrasound wnl, likely 2/2 hepatic congestion -Renal consulted -f/u viral panel, A1C, TSH #FEN: No IVFs/ K repleted / Na restricted diet #DVT PPX - Lovenox Thank you for this consultative opportunity. Will continue to follow. d/w Dr. El Yu MD PGY1 - Internal Medicine Visit type - Emergency Visit Emergency Visit: No - New Patient This patient is new to me today: Yes Date on this admission: 01/23/17 - Critical Care Critical Care patient: No
[2017-01-24] MEDS: CARVEDILOL 6.25 MG TABLET (FP) PO SCH ×3 (00:13→10:37)
--- NOTE | 2017-01-24 01:41 | EKG ---
Test Reason : Blood Pressure : / mmHG Vent. Rate : 060 BPM Atrial Rate : 060 BPM P-R Int : 126 ms QRS Dur : 082 ms QT Int : 442 ms P-R-T Axes : 031 041 028 degrees QTc Int : 442 ms NORMAL SINUS RHYTHM NORMAL ECG NO PREVIOUS ECGS AVAILABLE Confirmed by LISETTE MELGAR MD ([id number]) on 01/24/2017 1:41:13 AM Referred By: Confirmed By:LISETTE MELGAR MD
[2017-01-24 08:48] LABS: ALBUMIN 2.6 g/dl (3.4-5.0); ANION GAP 7 (8-16); CALCIUM 8.4 mg/dL (8.5-10.1); CO2 31 mmol/L (21-32); CREATININE 0.7 mg/dL (0.55-1.02); GLUCOSE,RANDOM 92 mg/dL (74-106); SGOT/AST 19 U/L (15-37); SGPT/ALT 63 U/L (12-78); TOT PROT 6.4 g/dl (6.4-8.2)
[2017-01-24 08:56] LABS: ALK PHOS 127 U/L (45-117); THYROID STIMULATING HORMONE 2.41 uIU/ml (0.358-3.74)
--- NOTE | 2017-01-24 09:34 | PN ---
Physical Exam: 24H events: yesterday -ECHO yesterday unlikely cardiomyopathy (LV systolic function preserved, mild MR and NV, mod TR, no pericardial effusion) O/N: Drowsy after Coreg last night AM: No acute SUBJECTIVE: Patient seen and examined. Sob improving. Offers no complaints. Denies CP, chest tightness, fever, chills. Wishes to go home. OBJECTIVE: Vital Signs Period Temp Pulse Resp BP Sys/Barrientos Pulse Ox Last 24 Hr 98.6 F-99.2 F 49-63 18-20 133-178/83-96 GENERAL: nad, aox3 NECK: supple LUNGS: CTAB HEART: rrr, normal S1/S2, no m/r/g, no jvd ABDOMEN: Soft, ntnd, well-healing CS scar EXTREMITIES: wwp, no edema, 2+ DP NEUROLOGICAL: CN II-XII intact. Normal speech Laboratory Results - last 24 hr 01/23/17 01/23/17 01/23/17 08:20 22:00 22:00 Sodium 144 Potassium 3.8 Chloride 103 Carbon Dioxide 31 Anion Gap 10 BUN 5 L Creatinine 0.6 Creat Clearance w eGFR > 60 Random Glucose 103 Hemoglobin A1c % Calcium 8.9 Phosphorus 4.2 Magnesium 2.4 Total Bilirubin 0.9 AST 29 D ALT 86 H D Alkaline Phosphatase 131 H Creatine Kinase 202 H Creatine Kinase Index 0.6 CK-MB (CK-2) 1.238 Troponin I 0.02 Total Protein 6.5 Albumin 2.7 L TSH U Random Total Protein < 5 L Urine Creatinine < 13.0 L 01/24/17 01/24/17 08:00 08:00 Sodium 141 Potassium 3.6 Chloride 103 Carbon Dioxide 31 Anion Gap 7 L BUN 7 D Creatinine 0.7 Creat Clearance w eGFR > 60 Random Glucose 92 Hemoglobin A1c % 5.3 Calcium 8.4 L Phosphorus Magnesium Total Bilirubin 1.0 AST 19 D ALT 63 D Alkaline Phosphatase 127 H Creatine Kinase Creatine Kinase Index CK-MB (CK-2) Troponin I Total Protein 6.4 Albumin 2.6 L TSH 2.41 U Random Total Protein Urine Creatinine Active Medications Generic Name Dose Route Start Last Admin Trade Name Freq PRN Reason Stop Dose Admin Acetaminophen 650 mg 01/21/17 22:27 Tylenol - PO Q4H PRN FEVER OR PAIN Carvedilol 6.25 mg 01/23/17 15:30 01/24/17 00:38 Coreg - PO 6.25 mg BID [facility]ALEN Administration Enoxaparin Sodium 40 mg 01/22/17 10:00 01/23/17 10:00 Lovenox - SQ 40 mg DAILY JALEN Administration Furosemide 40 mg 01/24/17 10:00 Lasix - PO DAILY JALEN Lisinopril 20 mg 01/24/17 10:00 Prinivil PO DAILY [facility] Oxycodone HCl 5 mg 01/21/17 18:08 Roxicodone - PO Q4H PRN PAIN LEVEL 1-5 Sodium Chloride 2 spray 01/23/17 09:41 01/23/17 16:48 [place] Nasal [place] - NS 2 sprays TID PRN Administration NASAL CONGESTION ASSESSMENT/PLAN: 41yo woman, previously healthy, who is s/p CS (01/12) who p/w with several days SOB and pulmonary edema. #hypertensive emergency with flash pulmonary edema -BP control improving with current regiment - lisinopril 20mg qd, Carvedilol 6.5mg PO qd, lasix 20mg PO qd. Can be discharged home with close follow-up. Avoid breast feeding while on ACEi and lasix. -f/u Renal artery doppler to r/o HTN due to renal artery stenosis #Transaminitis, improving - Ultrasound wnl, likely 2/2 hepatic congestion, no proteinuria --> not c/w preeclampsia -Renal consulted -Viral panel still pending, TSH wnl, Alc 5.3% #FEN: No IVFs/ lytes wnl / Na restricted diet #DVT PPX - Lovenox Thank you for this consultative opportunity. d/w Dr. El Yu MD PGY1 - Internal Medicine Visit type - Emergency Visit Emergency Visit: No - New Patient This patient is new to me today: No - Critical Care Critical Care patient: No
[2017-01-24] MEDS ORDERED: LISINOPRIL 10 MG TABLET (FP) PO SCH (10:00)
[2017-01-24] MEDS ORDERED: LISINOPRIL 20 MG TABLET (FP) PO SCH (10:00)
[2017-01-24] MEDS ORDERED: FUROSEMIDE 40 MG TABLET (FP) PO SCH (10:00)
--- NOTE | 2017-01-24 11:08 | PN ---
Progress Note (short form) - Note Progress Note: Renal follow up for hypertension Pt seen and examined at the bedside awake and alert no acute complaints wants to go home has drowsiness after coreg last night. Vital Signs Temperature 99.3 F 01/24/17 08:45 Pulse Rate 81 01/24/17 08:45 Respiratory Rate 18 01/24/17 08:45 Blood Pressure 133/91 01/24/17 08:45 O2 Sat by Pulse Oximetry (%) 99 01/21/17 21:40 Intake & Output 01/21/17 01/22/17 01/23/17 01/24/17 23:59 23:59 23:59 23:59 Intake Total 1700 2610 1270 150 Output Total 3700 2775 450 Balance 1700 -1090 -1505 -300 Weight 78.471 kg 75.75 kg 75.75 kg 74.389 kg NAD Awake and alert trace LE edema CBC, BMP 01/22/17 06:00 01/24/17 08:00 Current Medications Acetaminophen (Tylenol -) 650 mg PO Q4H PRN PRN Reason: FEVER OR PAIN Carvedilol (Coreg -) 6.25 mg PO BID [facility] Last Admin: 01/24/17 10:37 Dose: 6.25 mg Enoxaparin Sodium (Lovenox -) 40 mg SQ DAILY [facility] Last Admin: 01/23/17 10:00 Dose: 40 mg Furosemide (Lasix -) 40 mg PO DAILY [facility] Lisinopril (Prinivil) 20 mg PO DAILY [facility] Oxycodone HCl (Roxicodone -) 5 mg PO Q4H PRN PRN Reason: PAIN LEVEL 1-5 Sodium Chloride ([place] Nasal [place] -) 2 spray NS TID PRN PRN Reason: NASAL CONGESTION Last Admin: 01/23/17 16:48 Dose: 2 sprays 41 year old woman with no significant past medical history that presented s/p Primary with complaints of SOB and found to have Cardiomyopathy and hypertension. # Hypertension w/o evidence of preeclampsia (no proteinuria) ECHO showed preserved LVEF and thus not cardiomyopathy BP is better controlled on Lisinopril, Coreg and Lasix will need to r/o renal artery stenosis that can cause flash pulmonary edema and hypertension -> will check renal artery doppler pt should be able to be discharged on current meds with close monitoring of BP as outpatient Card provided to the patient to follow up in our office if renal artery Doppler is abnormal will need vascular Sx eval as outpatient discussed with Dr. Rubio pt cannot breast feed on ACEi and Lasix (made pt aware) Thank you Taz Bonilla DO
[2017-01-24] MEDS ORDERED: FUROSEMIDE 20 MG TABLET (FP) PO SCH (11:10)
[2017-01-24] MEDS: ENOXAPARIN NA (PORCINE) 40 MG/0.4 ML DISP.SYRIN SQ SCH (11:40)
[2017-01-24 13:05] VITALS: BP 141/88; PULSE 67; TEMP 98.6
--- NOTE | 2017-01-24 13:49 | DS ---
Physical Examination Vital Signs: Vital Signs Temperature 98.6 F 01/24/17 13:00 Pulse Rate 67 01/24/17 13:00 Respiratory Rate 18 01/24/17 13:00 Blood Pressure 141/88 01/24/17 13:00 O2 Sat by Pulse Oximetry (%) 98 01/24/17 08:45 Constitutional: Yes: Well Nourished, No Distress, Calm Eyes: Yes: Conjunctiva Clear, EOM Intact HENT: Yes: Atraumatic, Normocephalic Neck: Yes: Supple, Trachea Midline Cardiovascular: Yes: Regular Rate and Rhythm Respiratory: Yes: Regular, CTA Bilaterally Gastrointestinal: Yes: Normal Bowel Sounds, Soft Labs: CBC, BMP 01/22/17 06:00 01/24/17 08:00 Discharge Summary Reason For Visit: PLEURAL EFFUSION Current Active Problems Acute diastolic heart failure (Acute) Pleural effusion (Acute) hypertension (Acute) Shortness of breath (Acute) Condition: Stable - Instructions Diet, Activity, Other Instructions: Physical activity Resume your normal everyday activity as tolerated no heavy lifting or strenuous exercise until seen by your doctors. You may walk unlimited amounts and climb stairs. You may resume driving the car when you feel safe and comfortable behind the wheel. No sexual activity as instructed. Diet Try to keep your diet to a low sodium diet. Eat healthy, high-fiber foods. Drink 6 to 8 glasses of liquid each day. This will assist in keeping your bowels regular. Pain management You may take Tylenol as needed for mild pain or Percocet as prescribed after your last visit for severe pain. Please avoid NSAIDS (Motrin/Ibuprofen/Advil/ Aleve) until further notice. Call MD for any of the following: Severe pain not relieved by medication Fever of 101 or higher Excessive bleeding or drainage on dressing Inability to urinate Headaches/shortness of breath/chest pain Any other concerns Please see Dr. Bonilla and Dr. Rubio within 1-2 weeks after discharge Referrals: Barney Santana MD [Primary Care Provider] - Lanette Rubio DO [Staff Physician] - 1 Week (within 1-2 weeks of discharge) Taz Bonilla MD [Staff Physician] - 1 Week (within 1-2 weeks of discharge) Disposition: HOME - Home Medications Comprehensive Discharge Medication List: Ambulatory Orders Ibuprofen [Motrin -] 600 mg PO QID PRN #28 tablet 01/15/17 Carvedilol [Coreg] 6.25 mg PO BID #60 tablet 01/24/17 Furosemide [Lasix] 20 mg PO DAILY #30 tablet 01/24/17 RX: Lisinopril [Prinivil] 20 mg PO DAILY #30 tablet 01/24/17
--- NOTE | 2017-01-24 13:54 | PN ---
Progress Note, Physician - Current Medication List Current Medications: Active Medications Acetaminophen (Tylenol -) 650 mg PO Q4H PRN PRN Reason: FEVER OR PAIN Carvedilol (Coreg -) 6.25 mg PO BID [facility] Last Admin: 01/24/17 10:37 Dose: 6.25 mg Enoxaparin Sodium (Lovenox -) 40 mg SQ DAILY [facility] Last Admin: 01/24/17 11:40 Dose: 40 mg Furosemide (Lasix -) 20 mg PO DAILY [facility] Last Admin: 01/24/17 11:39 Dose: 20 mg Lisinopril (Prinivil) 20 mg PO DAILY [facility] Last Admin: 01/24/17 11:39 Dose: 20 mg Oxycodone HCl (Roxicodone -) 5 mg PO Q4H PRN PRN Reason: PAIN LEVEL 1-5 Sodium Chloride ([place] Nasal [place] -) 2 spray NS TID PRN PRN Reason: NASAL CONGESTION Last Admin: 01/23/17 16:48 Dose: 2 sprays - Objective Vital Signs: Vital Signs Temperature 98.6 F 01/24/17 13:00 Pulse Rate 67 01/24/17 13:00 Respiratory Rate 18 01/24/17 13:00 Blood Pressure 141/88 01/24/17 13:00 O2 Sat by Pulse Oximetry (%) 98 01/24/17 08:45 Labs: CBC, BMP 01/22/17 06:00 01/24/17 08:00 INR, PTT INR 1.02 (0.82-1.09) 01/21/17 13:08
--- NOTE | 2017-01-24 18:10 | PN ---
Teaching Attending Note Name of Resident: Kristina Yu ATTENDING PHYSICIAN STATEMENT I saw and evaluated the patient. I reviewed the resident's note and discussed the case with the resident. I agree with the resident's findings and plan as documented. 41 y/o lady who is previously helathy, now s/p CS who presented with SOB x 3 days . 1- HTN emergency with resultant pulmonary edema . - cont lisinopril at 20, coreg at 6.25, and dcreae lasix to 20 at dc. - need blood work BMP after dc in 1 week 3- Transaminitis : likely due to passive liver congestion. Cont to improve - US with no etiology - cont to trend dc today
[2017-01-25] MEDS ORDERED: FUROSEMIDE 40 MG TABLET (FP) PO SCH (10:00)
== END 2017-01-24 14:20 | disposition home or self-care (01) | DRG 561 ==
LOC: JER 12:30 → JERBED 18:37 → J3W 21:09
PROVIDERS: ADMIT Obstetrics & Gynecology; ATTEND Obstetrics & Gynecology
DX: O16.5 Unspecified maternal hypertension, complicating the puerperium (principal); O90.3 Peripartum cardiomyopathy; I97.131 Postprocedural heart failure following other surgery; Y83.9 Surgical procedure, unspecified as the cause of abnormal reaction of the patient, or of later complication, without mention of misadventure at the time of the procedure; O90.89 Other complications of the puerperium, not elsewhere classified; R74.0 Nonspecific elevation of levels of transaminase and lactic acid dehydrogenase [LDH]; J90 Pleural effusion, not elsewhere classified; K76.1 Chronic passive congestion of liver; I50.31 Acute diastolic (congestive) heart failure
CPT/HCPCS: 36415; 71010-TC; 71020-TC; 71275-TC; 76705-TC; 76775-TC; 80053; 81003; 81015; 82550; 82553; 82570; 83036; 83735; 83880; 84100; 84156; 84443; 84484; 85025; 85610; 86704; 86706; 86708; 86803; 87340; 93005; 93010; 93306-TC; 93971-TC; 93975; 99285-25